=== PATIENT | female | born 1950 | race Caucasian/White ===

== ENCOUNTER 2021-01-18 08:43 | Outpatient (CLI) | payer MEDICARE, MEDICAID, SELFPAY ==
--- NOTE | ~2021-01-18 | CT_ITS ---
EXAMINATION: CT brain wo con EXAM DATE: 01/18/2021 09:14 INDICATION: Dizziness and giddiness. TECHNIQUE: Spiral CT of the head was performed without contrast. Axial, coronal and sagittal images were reviewed. The dose-length product (DLP) for this examination was 605.33 mGy-cm. The exposure w as tailored according to patient size, and iterative reconstruction (ASIR) was used as additional dos e reduction technique. Comparison is made to prior examination from 01/07/2014. FINDINGS: There is no acute intraparenchymal hemorrhage. No evidence of intraparenchymal brain mass lesion. No evidence of acute infarction. Please note that initial head CT has limited sensitivity f or small or acute infarctions. There is old left caudate lacunar infarction. There is mild to moder ate periventricular and subcortical hypodensity, nonspecific but probably related to small vessel isc hemic disease. There is mild to moderate prominence of the sulci and ventricles related to cerebral atrophy. There is intracranial carotid arteriosclerosis. There are no extra-axial collections. T here is no mass effect or midline shift. The orbits are unremarkable. Soft tissue is unremarkable. The visualized sinuses and mastoid air cells are well aerated. IMPRESSION: 1. Old left caudate lacunar infarction. 2. Chronic age related findings. Reviewed, dictated and finalized at location [facility].
== END 2021-01-18 08:44 | disposition home or self-care (01) ==
PROVIDERS: PCP Internal Medicine; Visit Provider Internal Medicine
DX: R42 Dizziness and giddiness (principal); Z86.73 Personal history of transient ischemic attack (TIA), and cerebral infarction without residual deficits
CPT/HCPCS: 70450

== ENCOUNTER 2021-07-29 20:17 | Inpatient (IN) | payer MEDICARE, MEDICAID, SELFPAY ==
[2021-07-29] VITALS (7 sets, daily range): BP systolic 119–142; BP diastolic 81–100; PULSE 96–110; RESP 18–20; TEMP 36.6; O2SAT 90–96
--- NOTE | ~2021-07-29 | XR_ITS ---
EXAMINATION: XR chest 2V DATE: 07/29/2021 20:59 INDICATION: Shortness of breath. TECHNIQUE: frontal and lateral views of the chest were obtained. COMPARISON: Chest radiograph dated 01/16/2014 FINDINGS: Opacities in the left lower lung zone with blunting at the posterior sulcus consistent with small lef t pleural effusion and associated atelectasis and/or pneumonia. Right lung remains clear. No pneumoth orax or definitive right pleural effusion. Enlargement of the somewhat globular cardiac silhouette wh ich could be due to cardiomegaly and/or pericardial effusion. Prominent calcified mediastinal and rig ht hilar lymph nodes consistent with old granulomatous disease. Mild thoracic kyphosis with moderate spondylosis. IMPRESSION: 1. Small left pleural effusion with associated left basilar atelectasis and/or pneumonia. 2. Enlarged somewhat globular cardiac silhouette which could be due to cardiomegaly and/or pericardia l effusion. Reviewed, dictated and finalized at [facility]. SERVICE DIRECTOR IMPRESSION: 1. Small left pleural effusion with associated left basilar atelectasis and/or pneumonia. 2. Enlarged somewhat globular cardiac silhouette which could be due to cardiome shantel and/or pericardial effusion.
--- NOTE | ~2021-07-29 | XR_ITS ---
XR chest 1V portable DATE: 07/31/2021 06:39 INDICATION: Congestive heart failure TECHNIQUE: Portable upright AP chest on 07/31/2021 at 0547 hours COMPARISON: 07/29/2021 2 view chest FINDINGS: Globular enlarged cardiac silhouette may be consistent with cardiomegaly and/or pericardial effusion, stable since 07/29/2021. There is prominent aortic calcification. There are calcified hilar and mediastinal nodes consistent with old pulmonary granulomatous disease. There is patchy atelectasis and/or consolidation in the left lower lobe. Left lower lobe pneumonia is suspected. There is mild infiltrate or atelectasis in the right lower lung. There is pulmonary vascular congestion and redistribution and mild prominence of the minor fissure. K erley B-lines are noted suggesting pulmonary interstitial edema. There is minimal if any pleural effu re. No pneumothorax. Diffuse osteopenia. There is mild dextroscoliosis of the thoracic spine. IMPRESSION: Prominent cardiomegaly and/or pericardial effusion Congestive changes Bilateral lower lobe infiltrate and/or consolidation, more prominent on the left Little interval change since 07/29/2021 Reviewed, dictated and finalized at location A. HOLOGIST DEVELOPMENTAL IMPRESSION: Prominent cardiomegaly and/or pericardial effusion Congestive changes Bilateral lower lobe infiltrate and/or consolidation, more prominent on the lef t Little interval change since 07/29/2021
--- NOTE | ~2021-07-29 | CT_ITS ---
EXAMINATION: CT diagnostic chest wo con DATE: 07/31/2021 11:32 INDICATION: sob TECHNIQUE: Computed tomography (CT) of the chest was performed without intravenous contrast. Addition al 3D reconstructions utilizing coronal maximum intensity projection (MIP) were performed. Automated exposure control and iterative reconstruction technique were employed. The dose-length product was 3 91.11 mGy-cm. COMPARISON: 01/16/2014 FINDINGS: Small bilateral pleural effusions with dependent compressive atelectasis in the bilateral lower lobes . There is additional compressive atelectasis medially in the bilateral lower lobes along side a larg e sliding-type hiatal hernia. No pneumonia. Mild scattered peripheral smooth septal line thickening c onsistent with minimal pulmonary edema. Mild emphysema. Cardiomegaly. Small pericardial effusion. Ath erosclerotic coronary artery ossification. Aortic valve calcification. Atherosclerotic calcification is along the normal caliber thoracic aorta. A few small calcified nodules in the right lung along wit h calcified mediastinal and right hilar lymph nodes and a few small hepatic and splenic calcification s, all consistent with old granulomatous disease. Mild thoracic kyphosis with moderate spondylosis. IMPRESSION: 1. Mild congestive heart failure with minimal pulmonary edema and small bilateral pleural effusions. 2. Cardiomegaly with small pericardial effusion. Reviewed, dictated and finalized at location H. RINTENDENT OIL FIELD DRILLING IMPRESSION: 1. Mild congestive heart failure with minimal pulmonary edema and small bilater al pleural effusions. 2. Cardiomegaly with small pericardial effusion.
--- NOTE | ~2021-07-29 | US_ITS ---
US renal BI DATE: 07/30/2021 09:02 INDICATION: Acute renal insufficiency TECHNIQUE: Real-time imaging of the kidneys and urinary bladder COMPARISON: None FINDINGS: Examination limited due to patient condition. The right kidney measures approximately 9.3 cm length, left kidney measures approximately 10.5 cm [facility]. Increased parenchymal echogenicity suggests chronic renal disease. No hydronephrosis is evident. The urinary bladder is unremarkable. IMPRESSION: Chronic renal disease; no obvious renal mass lesion or hydronephrosis Reviewed, dictated and finalized at Location [facility]. Reviewed, dictated and finalized at location A. SERVICER HELPER IMPRESSION: Chronic renal disease; no obvious renal mass lesion or hydronephros is
--- NOTE | 2021-07-29 20:43 | ECG_ITS ---
Measurements Intervals [place] Rate: 109 P: 47 SD: 121 QRS: -19 QRSD: 125 T: 48 QT: 355 QTc: 480 Interpretive Statements SINUS TACHYCARDIA VENTRICULAR TRIGEMINY POSSIBLE LEFT ATRIAL ENLARGEMENT BORDERLINE R WAVE PROGRESSION, ANTERIOR LEADS MINIMAL Q WAVES- HIGH LATERAL LEADS BORDERLINE T WAVE ABNORMALITY- INF/HIGH LAT LEADS BASELINE ARTIFACT- I, II, III, AVR, AVL, AVF, V1-V6 ABNORMAL ECG Electronically Signed On 07-30-2021 8:27:51 ARMATURE BALANCER by Axel Garibay D.O.
[2021-07-29 20:53] LABS: Basophils Percent Auto 0.5 % (0.2-1.2); Eosinophils Absolute Auto 0.1 K/mm3 (0-0.3); Eosinophils Percent Auto 2.3 % (0-4.4); Hematocrit 35.8 % (37.0-47.0); Hemoglobin 11.1 g/dL (12.0-15.0); Immature Granulocyte Absolute 0.01 K/mm3 (0.00-0.031); Immature Granulocyte Percent A 0.2 % (0-0.5); Lymphocytes Absolute Auto 0.92 K/mm3 (0.9-3.2); Lymphocytes Percent Auto 16.1 % (18.3-44.2); Mean Corpuscular Volume 106.5 fl (80-100); Monocytes Absolute Auto 0.6 K/mm3 (0.1-0.6); Monocytes Percent Auto 10.3 % (2.6-8.5); Neutrophils Percent Auto 70.6 % (45.5-73.1); Platelet Count Result 203 k/mm3 (150-375); Red Blood Count 3.36 M/mm3 (4.2-5.4); Red Cell Distribution Width 13.5 % (11.5-14.5); White Blood Count 5.7 K/mm3 (4.5-10.0)
[2021-07-29 21:03] LABS: Alanine Aminotransferase 11 U/L (4-35); Albumin Level 3.9 g/dL (3.5-5.1); Alkaline Phosphatase 90 U/L (38-126); Anion Gap 7 mmol/L (8-16); Aspartate Amino Transferase 33 U/L (14-36); Bilirubin,Total 0.6 mg/dL (0.2-1.3); Blood Urea Nitrogen 27 mg/dL (7-17); Carbon Dioxide 27 mmol/L (22-30); Chloride 101 mmol/L (98-107); Estimated CRCL calculation 40 ml/min; Estimated Glomerular Filt Rate 41; Glucose 113 mg/dL (65-110); Potassium 4.2 mmol/L (3.4-5.0); Sodium 135 mmol/L (137-145)
[2021-07-29 21:08] LABS: INR 1.1; Prothrombin Time 14.4 Seconds (11.1-14.7)
[2021-07-29 21:09] LABS: Partial Thromboplastin Time 34.9 SECONDS (22.3-36.8)
[2021-07-29 21:12] LABS: NT Pro B Type Natriuretic Pept 15500 pg/mL (5-100)
--- NOTE | 2021-07-29 21:50 | ED.SOB ---
HPI - SOB/Dyspnea General Chief Complaint: Shortness of Breath/Dyspnea Stated Complaint: dyspnea Time Seen by Provider: 07/29/21 20:24 History of Present Illness HPI Narrative: Patient is a 70-year-old female who presents from her fdc with shortness of breath. She reports increased swelling to her legs recently. She reports 1 hospitalization years ago for heart failure exacerbation. She reports this feels similar. She reports she is short of breath with laying back. No fevers or chills or sweats. No productive cough. No chest pain or chest pressure. Related Data Home Medications Medication Instructions Recorded Confirmed Adults Multivitamin 1 tab-cap PO DAILY 07/30/21 07/30/21 Aspirin Low Dose 81 mg PO DAILY 07/30/21 07/30/21 Benadryl 25 mg PO HS 07/30/21 07/30/21 Claritin 10 mg PO DAILY 07/30/21 07/30/21 Flonase Allergy Relief 1 puff EACH NARE DAILY 07/30/21 07/30/21 Lasix 20 mg PO BID 07/30/21 07/30/21 Vitamin D2 50,000 unit PO MONTHLY 07/30/21 07/30/21 acetaminophen 650 mg PO ONCE 07/30/21 07/30/21 aripiprazole [Abilify] 15 mg PO DAILY 07/30/21 07/30/21 bisacodyl 10 mg RECTAL TID PRN 07/30/21 07/30/21 carbidopa-levodopa 25 - 100 mg PO TID 07/30/21 07/30/21 docusate sodium 100 mg PO DAILY PRN 07/30/21 07/30/21 levothyroxine 150 mcg PO DAILY 07/30/21 07/30/21 loperamide 2 mg PO DAILY PRN 07/30/21 07/30/21 meclizine 12.5 mg PO TID 07/30/21 07/30/21 meloxicam 7.5 mg PO DAILY 07/30/21 07/30/21 omeprazole 20 mg PO DAILY 07/30/21 07/30/21 polyethylene glycol 17 g PO DAILY PRN 07/30/21 07/30/21 potassium chloride 10 meq PO DAILY 07/30/21 07/30/21 simethicone 80 mg PO QID PRN 07/30/21 07/30/21 Allergies Allergy/AdvReac Type Severity Reaction Status Date / Time clindamycin Allergy Mild Verified 11/04/11 10:12 bee stings Allergy Unknown Swelling Uncoded 01/16/14 15:30 Review of Systems Review of Systems: All systems reviewed & are unremarkable except as noted in HPI and below Constitutional: Constitutional: Denies chills, Reports fatigue, Denies fever(s) and Reports weakness ENT: Denies nasal congestion and Denies sore throat Cardiovascular: Cardiovascular: Denies chest pain and Denies rapid heart rate Respiratory: Respiratory: Denies cough, Reports dyspnea and Denies wheezing Gastrointestinal: Gastrointestinal: Denies abdominal pain, Denies diarrhea, Denies nausea and Denies vomiting Genitourinary: Genitourinary: Denies nocturia, Denies dysuria and Denies flank pain PMFSH Past Medical History Medical History (Updated 07/31/21 @ 19:58 by Duane Joshi MD) Hypothyroidism Parkinson disease Family History Family History (Updated 07/31/21 @ 11:22 by Ricky Garcia MD) Father Alzheimer's dementia Other Unknown family medical history Social History Social History Smoking status: Former smoker Alcohol intake: never Substance use: never Spiritual care concerns: No Exam Narrative: GENERAL: Chronically ill-appearing, well-nourished, and in no acute distress. HEAD: Normocephalic, atraumatic. EYES: PERRLA and EOMI. ENT: Mucous membranes moist. CHEST: Bibasilar crackles. No respiratory distress. HEART: Regular rate and rhythm. Normal peripheral pulses. ABDOMEN: Soft, nontender, nondistended. EXTREMITIES: Normal range of motion. 2+ edema. SKIN: Warm, dry, no rash. NEURO: Alert and oriented x3. PSYCH: Normal mood and affect. Course Course Emergency Course: Patient informed of results. Admit to hospitalist service for diuresis. Patient requiring supplemental oxygen. Vital Signs Vital signs: Vital Signs Temperature 98 F 07/29/21 20: Pulse Rate 110 H 07/29/21 20: Respiratory Rate 20 07/29/21 20: Pulse Oximetry 90 07/29/21 20: Temperature 97.6 F 07/31/21 18:00 Pulse Rate 100 07/31/21 18:00 Respiratory Rate 18 07/31/21 18:00 Blood Pressure 100/74 07/31/21 18:00 Pulse Oximetry 95 07/31/21 18:00 MDM - SOB/Dyspnea Lab Data
--- NOTE | 2021-07-29 21:53 | PM.IMHP ---
H&P: HPI History of Present Illness Date/Time: 07/29/21 21:53 Chief Complaint: Shortness of breath Narrative: This is a 70-year-old female with past medical history significant for degenerative joint disease, hypothyroidism, seasonal allergies. Patient lives at [facility] and was brought in today due to shortness of breath. Patient states that she has been having swelling of her extremities progressively as well as her abdomen increased abdominal girth, however she denies any PND or orthopnea, no lightheadedness, no near syncope, no syncope, no palpitations no chest pain, no fevers, no rigors, no chills, no cough ,no sputum production. Preliminary workup was significant for brain atretic peptide elevated at 15,500, however no prior or lab values for comparison hemoglobin of 11 with MCV of 106, creatinine of 1.3 BUN 27 a chest x-ray showed left-sided pleural effusion versus pneumonia. Patient has been admitted for further evaluation management and treatment. Review of Systems Review of Systems: Bilateral lower extremity swelling shortness of breath Constitutional: Constitutional: Denies chills, Denies fever(s), Denies lethargy, Denies malaise, Denies night sweats, Denies poor appetite and Denies weakness Eyes: Eyes: Denies change in vision ENT: Denies dysphagia, Denies vertigo, Denies dizziness, Denies nasal congestion, Denies nasal discharge, Denies nasal obstruction and Denies odynophagia Cardiovascular: Cardiovascular: Reports leg edema, Denies radiating jaw, neck or arm pain, Denies palpitations, Reports dyspnea, Reports dyspnea on exertion and Denies orthopnea Respiratory: Respiratory: Denies change in phlegm color, Denies cough and Denies excessive phlegm production Gastrointestinal: Gastrointestinal: Denies abdominal pain, Denies dyspepsia, Denies heartburn, Denies diarrhea, Denies nausea and Denies vomiting Genitourinary: Genitourinary: Denies dysuria Musculoskeletal: Musculoskeletal: Denies arthralgias and Denies joint swelling Integumentary/Breasts: Skin/Breast: Denies rash Neurologic: Denies focal weakness and Denies Sensory deficit (Neuro) Psychiatric: Psychiatric: Reports no additional psychiatric complaints and Reports as per HPI Endocrine: Endocrine: Denies polydipsia, Denies polyuria and Denies palpitations Hematologic/Lymphatic: Hematologic/Lymphatic: Reports no additional hematologic/lymphatic complaints and Reports as per HPI Allergic/Immunologic: Allergic/Immunologic: Reports no additional allergic/immunologic complaints and Reports as per HPI [facility] Family History Family History (Updated 07/29/21 @ 23:43 by Paula Wallis RN) Other Unknown family medical history Social History Social History Smoking status: Former smoker Alcohol intake: never Substance use: never Spiritual care concerns: No Meds Home Medications and Allergies Home Medications Medication Instructions Recorded Confirmed Type Adults Multivitamin 1 tab-cap PO DAILY 07/30/21 07/30/21 History Aspirin Low Dose 81 mg PO DAILY 07/30/21 07/30/21 History Benadryl 25 mg PO DAILY 07/30/21 07/30/21 History Claritin 10 mg PO DAILY 07/30/21 07/30/21 History Flonase Allergy Relief 1 puff EACH NARE DAILY 07/30/21 07/30/21 History Lasix 20 mg PO BID 07/30/21 07/30/21 History Vitamin D2 50,000 unit PO MONTHLY 07/30/21 07/30/21 History acetaminophen 650 mg PO ONCE 07/30/21 07/30/21 History aripiprazole [Abilify] 15 mg PO DAILY 07/30/21 07/30/21 History bisacodyl 10 mg RECTAL TID PRN 07/30/21 07/30/21 History carbidopa-levodopa 25 - 100 mg PO TID 07/30/21 07/30/21 History docusate sodium 100 mg PO DAILY PRN 07/30/21 07/30/21 History levothyroxine 150 mcg PO DAILY 07/30/21 07/30/21 History loperamide 2 mg PO DAILY PRN 07/30/21 07/30/21 History meclizine 12.5 mg PO TID 07/30/21 07/30/21 History meloxicam 7.5 mg PO DAILY 07/30/21 07/30/21 History omeprazole 20 mg PO DAILY 07/30/21 07/30/21 History polyethylene glycol 17 g PO DAILY
[2021-07-29] MEDS: ACETAMINOPHEN 500 MG TABLET 1000 MG PO (22:01)
--- NOTE | 2021-07-29 23:38 | ADMGEN ---
This patient, Sasha Sullivan, was admitted to Medical Room 249-01. Patient/family oriented to hospital policies and general routines including ID bracelet, bed and alarms, visiting hours, pain management, procedures, bathroom and other care routines, personal items, smoking policy, room service/diet, and visiting hours. Information on how to activate the Rapid Response Team has been discussed. Patient/Family are encouraged to report perceived risks to care and to ask questions if they do not understand what they are told or what they should do.
[2021-07-30] VITALS (10 sets, daily range): BP systolic 114–141; BP diastolic 73–93; PULSE 73–119; RESP 16–22; TEMP 36.1–36.9; O2SAT 93–98; BMI 31.1
--- NOTE | 2021-07-30 | ECHO_ITS ---
Patient Info Name: Sasha Sullivan Age: 70 years : 1950 Gender: Female Ht: 64 in Wt: 181 lbs BSA: 1.95 m2 HR: 100 bpm BP: 141 / 93 mmHg Heart Rhythm: Sinus Rhythm Exam Date: 07/30/2021 1:58 PM Exam Location: [facility] Patient Status: Outpatient Admit Date: 07/29/2021 Staff Ordering Physician: Saul Disla MD Counselor Marriage And Family: Oleg Cleveland, MARICARMEN, RT Attending Provider: Ramon Ramirez MD Exam Type: CA echo doppler color flow Study Info Indications I50.9 - Heart failure, unspecified Complete two-dimensional, color flow and Doppler transthoracic echocardiogram is performed. Summary 1. Complete two-dimensional, color flow and Doppler transthoracic echocardiogram is performed. 2. Left ventricular chamber dimension is severely enlarged. 3. Left ventricular systolic function is severely reduced, estimated at 20-25%. 4. There is no increased left ventricular wall thickness. 5. The left ventricular diastolic function is abnormal. 6. Left atrial chamber dimension is moderately enlarged. 7. Right atrial chamber dimension is mildly enlarged. 8. There is severe mitral valve regurgitation. 9. There is mild to moderate tricuspid valve regurgitation. 10. Severe pulmonary hypertension, estimated pulmonary arterial systolic pressure is 67 mmHg. 11. There is mild pulmonic regurgitation. Left Ventricle Left ventricular chamber dimension is severely enlarged. Left ventricular systolic function is severely reduced, estimated at 20-25%. There is no increased left ventricular wall thickness. The left ventricular diastolic function is abnormal. Right Ventricle Right ventricular chamber dimension is normal. Right ventricular systolic function is normal. Left Atria Left atrial chamber dimension is moderately enlarged. Right Atria Right atrial chamber dimension is mildly enlarged. Atrial Septum Intact interatrial septum visualized by color flow imaging. Aortic Valve The aortic valve is trileaflet. There is moderate aortic valve sclerosis. There is no aortic valve stenosis. There is mild aortic valve regurgitation. Pulmonic Valve The pulmonic valve is normal. There is no pulmonic valve stenosis. There is mild pulmonic regurgitation. Mitral Valve The mitral valve has calcified annulus. There is no mitral valve stenosis. There is severe mitral valve regurgitation. Tricuspid Valve The tricuspid valve leaflets are normal. There is no significant tricuspid valve stenosis. There is mild to moderate tricuspid valve regurgitation. Severe pulmonary hypertension, estimated pulmonary arterial systolic pressure is 67 mmHg. Pericardium/Pleural The pericardium appears normal. There is small pericardial effusion. Inferior Vena Cava Dilated inferior vena cava with <50% collapse upon inspiration consistent with elevated right atrial pressure, 15 mmHg. Aorta The aortic root size at the sinus of Valsalva is normal. Left Ventricular Outflow Tract Name Value Normal LVOT 2D LVOT Diameter 2.0 cm LVOT Doppler LVOT Peak Gradient 1 mmHg LVOT Mean Gradient
[2021-07-30] MEDS: LEVOTHYROXINE SODIUM 150 MCG TABLET PO (06:20)
[2021-07-30 08:01] LABS: Sodium Urine Random 91 meq/L
[2021-07-30 08:25] LABS: Creatinine Urine 34.5 mg/dL
[2021-07-30] MEDS: ACETAMINOPHEN 325 MG TABLET 650 MG PO ×3 (08:27→20:10)
[2021-07-30] MEDS: MECLIZINE HCL 12.5 MG TABLET PO ×3 (08:28→20:05)
[2021-07-30] MEDS: ASPIRIN 81 MG ENTERIC TABLET PO (08:29)
[2021-07-30] MEDS: MULTIVITAMINS THERAPEUTIC TAB (*BKC) 1 TABLET PO (08:29)
[2021-07-30] MEDS: ARIPiprazole 5 MG TABLET 15 MG PO (08:29)
[2021-07-30] MEDS: POTASSIUM CHLORIDE 10 MEQ TABLET PO (08:29)
[2021-07-30] MEDS: MELOXICAM 7.5 MG TABLET PO (08:29)
[2021-07-30] MEDS: CARBIDOPA/LEVODOPA 25/100 MG TABLET 1 TABLET PO ×3 (08:29→20:05)
[2021-07-30] MEDS: PANTOPRAZOLE 40 MG TABLET PO (08:29)
[2021-07-30] MEDS: LORATADINE 10 MG TABLET PO (08:29)
[2021-07-30] MEDS: FLUTICASONE PROPIONATE 0.05% NA SPR 16 GM BTL (*BKC) 2 SPRAY NASAL (08:30)
[2021-07-30] MEDS: FUROSEMIDE INJ 40 MG/4 ML VIAL IV PUSH ×2 (08:30→20:06)
[2021-07-30 08:49] LABS: Hematocrit 37.2 % (37.0-47.0); Hemoglobin 11.4 g/dL (12.0-15.0); Mean Corpuscular HGB Conc 30.6 g/dl (32-36); Mean Corpuscular Hemoglobin 32.9 pg (26-34); Mean Corpuscular Volume 107.5 fl (80-100); Mean Platelet Volume 10.3 fl (7.4-10.4); Platelet Count Result 200 k/mm3 (150-375); Red Blood Count 3.46 M/mm3 (4.2-5.4); Red Cell Distribution Width 13.5 % (11.5-14.5); White Blood Count 4.8 K/mm3 (4.5-10.0)
[2021-07-30 08:59] LABS: Alanine Aminotransferase 18 U/L (4-35); Alkaline Phosphatase 100 U/L (38-126); Anion Gap 7 mmol/L (8-16); Aspartate Amino Transferase 31 U/L (14-36); Bilirubin,Total 0.8 mg/dL (0.2-1.3); Blood Urea Nitrogen 23 mg/dL (7-17); Calcium 9.2 mg/dL (8.4-10.2); Carbon Dioxide 28 mmol/L (22-30); Chloride 101 mmol/L (98-107); Estimated CRCL calculation 41 ml/min; Estimated Glomerular Filt Rate 45; Glucose 154 mg/dL (65-110); Potassium 4.2 mmol/L (3.4-5.0); Sodium 136 mmol/L (137-145)
[2021-07-30 09:36] LABS: Thyroid Stimulating Hormone Reflex 0.977 uIU/mL (0.465-4.68)
[2021-07-30 10:05] LABS: Folic Acid 11.3 ng/mL (2.76->20)
--- NOTE | 2021-07-30 12:41 | PM.IMPN ---
Progress Note: A&P Assessment and Plan (1) Acute congestive heart failure: Code(s): I50.9 - Heart failure, unspecified Status: Acute Assessment and Plan: Patient with shortness of breath. BNP was [address]. Chest x-ray shows small left pleural effusion with associated atelectasis and a large cardiac silhouette. She has been started on IV Lasix. I/O's are not accurate. She still feels short of breath. Continue daily weights. Continue IV Lasix. Check echocardiogram. (2) Left lower lobe pneumonia: Code(s): J18.9 - Pneumonia, unspecified organism Status: Acute Assessment and Plan: Chest x-ray shows small left pleural effusion with associated atelectasis and/or pneumonia. More likely this is related to her CHF and not pneumonia. No fevers. White count normal. Antibiotics were not started and as such will not start them now. Repeat chest x-ray in the morning. (3) Acute renal failure (ARF): Code(s): N17.9 - Acute kidney failure, unspecified Status: Acute Assessment and Plan: BUN 27 creatinine 1.3 on admission. No clear baseline. She has been started on IV Lasix. Her renal function has improved probably related to ?unloading? of the heart. Renal ultrasound also is consistent with underlying CKD. Continue to monitor daily while on diuretics. Avoid nephrotoxic agents. (4) Anemia: Code(s): D64.9 - Anemia, unspecified Status: Acute Assessment and Plan: Patient with macrocytic anemia. B12 level low end of normal. Will check MMA. Replace B12. (5) Parkinson disease: Code(s): G20 - Parkinson's disease Status: Acute Assessment and Plan: Although not listed in the H&P, patient most likely has Parkinson's disease given clinical findings and the fact she is on Sinemet. Sinemet has been resumed. Start PT and OT. Speech therapy evaluation as well given the concern for pneumonia (6) Hypothyroidism: Code(s): E03.9 - Hypothyroidism, unspecified Status: Acute Assessment and Plan: TSH is normal. Continue Synthroid. (7) DVT prophylaxis: Code(s): Z29.9 - Encounter for prophylactic measures, unspecified Status: Acute Assessment and Plan: Lovenox Subjective Date/time seen: 07/30/21 12:42 Interval history: 70yo female with history of Parkinson here for shortness of breath. Assuming care. Chart reviewed. She slept poorly last night becasue it is a 'newer place'. No n/v. Still feels SOB. No CP. No abd pain. She does have headache and rd 'all over'. She has 'total body arthtritis'. Exam Narrative: AF 97.7 117/80 92 20 96% 2L Gen - NARD lying semi-recumbent in bed Chest - bibasilar inspiratory crackles with diffuse expiratory wheezes, nml RR. CV - RRR S1/S2; Tele showing PVCs, trigeminy and 4 beat NSVT x1 Abd - Soft, NT/ND, Positive BS Ext - pitting and nonpitting pedal edema Neuro - resting tremors noted. masked facies Psych - Nml mood with flat affect Skin - Warm and dry Objective Data Vital Signs Vital Signs: Vital Signs - 24 hr 07/29/21 20:22 07/29/21 20:29 07/29/21 20:31 Temperature 98 F Pulse Rate 110 H 108 H Respiratory Rate 20 Blood Pressure Pulse Oximetry 90 96 07/29/21 20:37 07/29/21 21:15 07/29/21 22:02 Temperature Pulse Rate 96 98 Respiratory Rate 20 18 Blood Pressure 140/100 H 142/96 H 119/81 Pulse Oximetry 96 96 07/29/21 23:53 07/30/21 00:00 07/30/21 04:00 Temperature 97.3 F L 97.2 F L Pulse Rate 98 91 101 H Respiratory Rate 18 18 18 Blood Pressure 118/90 141/93 H Pulse Oximetry 96 97 97 07/30/21 10:00 Temperature 97.7 F Pulse Rate 92 Respiratory Rate 20 Blood Pressure 117/80 Pulse Oximetry 96 Intake/Output Intake/Output: Intake & Output 07/27/21 07/28/21 07/29/21 07/30/21 23:59 23:59 23:59 23:59 Intake Total 880 Output Total 700 Balance 180 Meds/Results Medications: Active Medi
--- NOTE | 2021-07-30 13:56 | PCSTNOTE ---
Please refer to the Bedside Swallow Evaluation in the EMR. Please note, silent aspiration cannot be ruled out at bedside.
[2021-07-30] MEDS: ENOXAPARIN 40 MG/0.4 ML SYRINGE SUB-Q (15:50)
--- NOTE | 2021-07-30 22:18 | PC.NURSE ---
PT HAD RUN OF VTACH ON TELE MONITOR. 7 BEATS NON SUSTAINED. C/O SOB PRIOR TO EPISODE O2 SAT 96 ON 2L AND NON SYMPTOMATIC. TACOS NOTIFIED
[2021-07-30 23:10] LABS: Anion Gap 5 mmol/L (8-16); Blood Urea Nitrogen 25 mg/dL (7-17); Carbon Dioxide 30 mmol/L (22-30); Chloride 98 mmol/L (98-107); Estimated CRCL calculation 41 ml/min; Estimated Glomerular Filt Rate 45; Glucose 105 mg/dL (65-110); Magnesium 1.8 mg/dL (1.6-2.3); Potassium 3.6 mmol/L (3.4-5.0); Sodium 133 mmol/L (137-145)
[2021-07-31] VITALS (13 sets, daily range): BP systolic 98–112; BP diastolic 57–92; PULSE 81–123; RESP 16–22; TEMP 35.9–36.6; O2SAT 93–98
[2021-07-31] MEDS: MECLIZINE HCL 12.5 MG TABLET PO ×3 (05:20→20:00)
[2021-07-31 05:24] LABS: Hematocrit 36.2 % (37.0-47.0); Hemoglobin 11.1 g/dL (12.0-15.0); Immature Platelet Fraction Pct 6.2 % (0.9-11.2); Mean Corpuscular HGB Conc 30.7 g/dl (32-36); Mean Corpuscular Hemoglobin 33.4 pg (26-34); Platelet Count Result 143 k/mm3 (150-375); Red Blood Count 3.32 M/mm3 (4.2-5.4); Red Cell Distribution Width 13.4 % (11.5-14.5); White Blood Count 4.6 K/mm3 (4.5-10.0)
[2021-07-31 05:40] LABS: Albumin Level 3.6 g/dL (3.5-5.1); Anion Gap 4 mmol/L (8-16); Blood Urea Nitrogen 25 mg/dL (7-17); Carbon Dioxide 29 mmol/L (22-30); Chloride 102 mmol/L (98-107); Estimated CRCL calculation 45 ml/min; Estimated Glomerular Filt Rate 49; Glucose 84 mg/dL (65-110); Magnesium 1.9 mg/dL (1.6-2.3); Phosphorus 4.5 mg/dL (2.5-4.5); Potassium 3.9 mmol/L (3.4-5.0); Sodium 135 mmol/L (137-145)
[2021-07-31] MEDS: LEVOTHYROXINE SODIUM 150 MCG TABLET PO (06:27)
[2021-07-31] MEDS: FLUTICASONE PROPIONATE 0.05% NA SPR 16 GM BTL (*BKC) 2 SPRAY NASAL (07:55)
[2021-07-31] MEDS: polyethylene glycoL 3350 17 GM POWD.PACK PO (07:55)
[2021-07-31] MEDS: CARBIDOPA/LEVODOPA 25/100 MG TABLET 1 TABLET PO ×3 (07:55→20:00)
[2021-07-31] MEDS: ARIPiprazole 5 MG TABLET 15 MG PO (07:56)
[2021-07-31] MEDS: PANTOPRAZOLE 40 MG TABLET PO (07:56)
[2021-07-31] MEDS: ASPIRIN 81 MG ENTERIC TABLET PO (07:56)
[2021-07-31] MEDS: LORATADINE 10 MG TABLET PO (07:56)
[2021-07-31] MEDS: MELOXICAM 7.5 MG TABLET PO (07:56)
[2021-07-31] MEDS: CYANOCOBALAMIN 1,000 MCG TABLET 1000 MCG PO (07:56)
[2021-07-31] MEDS: POTASSIUM CHLORIDE 10 MEQ TABLET PO (07:56)
[2021-07-31] MEDS: MULTIVITAMINS THERAPEUTIC TAB (*BKC) 1 TABLET PO (07:56)
[2021-07-31] MEDS: FUROSEMIDE INJ 40 MG/4 ML VIAL IV PUSH ×3 (07:57→21:00)
[2021-07-31] MEDS: ACETAMINOPHEN 325 MG TABLET 650 MG PO ×3 (07:58→19:59)
--- NOTE | 2021-07-31 08:58 | PM.IMPN ---
Progress Note: A&P Assessment and Plan (1) Acute congestive heart failure: Code(s): I50.9 - Heart failure, unspecified Status: Acute Assessment and Plan: Patient with shortness of breath. BNP was 38815. Chest x-ray shows small left pleural effusion with associated atelectasis and a large cardiac silhouette. She has been started on IV Lasix. I/O's are not accurate. She still feels short of breath. Continue daily weights. Continue IV Lasix. Echocardiogram done which showed severe mitral regurgitation with ejection fraction down to 20-25% these is new will consult Cardiology for further evaluation. Continue with diuresis (2) Left lower lobe pneumonia: Code(s): J18.9 - Pneumonia, unspecified organism Status: Acute Assessment and Plan: Chest x-ray shows small left pleural effusion with associated atelectasis and/or pneumonia. More likely this is related to her CHF and not pneumonia. No fevers. White count normal. Antibiotics were not started and as such will not start them now. Repeat chest x-ray this morning with consultation on the left lower lobe. She does have some cough and has underlying Parkinson's disease. Will initiate IV antibiotics for possible pneumonia will get CT chest to further evaluate for this opacity in the left lower lobe which was done this morning formal read pending however no no obvious consolidation noted in my review but has bilateral pleural effusion right more than left (3) Acute renal failure (ARF): Code(s): N17.9 - Acute kidney failure, unspecified Status: Acute Assessment and Plan: BUN 27 creatinine 1.3 on admission. No clear baseline. She has been started on IV Lasix. Her renal function has improved probably related to ?unloading? of the heart. Renal ultrasound also is consistent with underlying CKD. Continue to monitor daily while on diuretics. Avoid nephrotoxic agents. (4) Anemia: Code(s): D64.9 - Anemia, unspecified Status: Acute Assessment and Plan: Patient with macrocytic anemia. B12 level low end of normal. Will check MMA. Replace B12. (5) Parkinson disease: Code(s): G20 - Parkinson's disease Status: Acute Assessment and Plan: Although not listed in the H&P, patient most likely has Parkinson's disease given clinical findings and the fact she is on Sinemet. Sinemet has been resumed. Start PT and OT. Speech therapy evaluation as well given the concern for pneumonia (6) Hypothyroidism: Code(s): E03.9 - Hypothyroidism, unspecified Status: Acute Assessment and Plan: TSH is normal. Continue Synthroid. (7) DVT prophylaxis: Code(s): Z29.9 - Encounter for prophylactic measures, unspecified Status: Acute Assessment and Plan: Lovenox Subjective Date/time seen: 07/31/21 08:58 Interval history: 70yo female with history of Parkinson here for shortness of breath. She reports some cough. Feels better than when she got admitted. Still gets short of breath with exertion. Leg swelling present getting IV Lasix. Has underlying Parkinson's disease. No chest pain Review of Systems Review of Systems: All systems reviewed & are unremarkable except as noted in HPI and below (HPI) Exam Narrative: Gen - NARD lying semi-recumbent in bed Chest - bibasilar inspiratory crackles with no wheezes, nml RR. CV - RRR S1/S2; Tele showing PVCs, trigeminy and 4 beat NSVT x1 Abd - Soft, NT/ND, Positive BS Ext - pitting and nonpitting pedal edema Neuro - resting pill-rolling tremors noted. masked facies Psych - Nml mood with flat affect Skin - Warm and dry Objective Data Vital Signs Vital Signs: Vital Signs - 24 hr 07/30/21 10:00 07/30/21 12:00 07/30/21 14:40 Temperature 97.7 F 98.4 F Pulse Rate 92 116 H 99 Respiratory Rate 20 22 H Blood Pressure 117/80 114/73 Pulse Oximetry 96 93 07/30/21 16:00 07/30/21 18:12 07/30/21 20:00
--- NOTE | 2021-07-31 11:17 | PM.CNCAR ---
Assessment and Plan Assessment and plan (1) Cardiomyopathy: Code(s): I42.9 - Cardiomyopathy, unspecified Status: Acute Assessment and Plan: patient has severe cardiomyopathy with ejection fraction 20 25%. It is uncertain at this point if this is primary or secondary. It may be secondary to her severe mitral regurgitation or primary resulting in LV dilatation and her mitral regurgitation may be secondary. further workup is indicated. Initially I am going to start her on furosemide 40 mg IV q.8 hours. Will initiate low-dose beta-pepper therapy in the form of carvedilol 3.25 mg p.o. b.i.d.. Will try afterload reduction the form of Entresto tomorrow as long as blood pressure will tolerate. She may need some ionotropic support to temporize her situation depending on how she responds to the IV furosemide today. Intake and output and daily weights. Low-salt diet. will repeat chest x-ray. since daily basic metabolic panel I did talk to her about other workup that would typically be needed including a MATT to investigate her mitral regurgitation, left/right heart catheterization and possible eventual mitral valve repair /replacement. At this point she declines and does not wish to pursue any invasive workup. She does verbalized understand that this may result in . I have offered and she wishes to have me discuss this situation with her son Krishan. I have already called and left a message on his voicemail. Awaiting return phone call (2) Acute systolic (congestive) heart failure: Code(s): I50.21 - Acute systolic (congestive) heart failure Status: Acute Assessment and Plan: severe LV dilatation with severe mitral regurgitation. EF 20-25%. Treatment is as above for now and up titrate medications and workup depending how she responds and patient wishes (3) Mitral regurgitation: Code(s): I34.0 - Nonrheumatic mitral (valve) insufficiency Status: Acute Assessment and Plan: severe. Again at this point unknown if this is primary or secondary. Matt is recommended if invasive workup is desired (4) Parkinson disease: Code(s): G20 - Parkinson's disease Status: Acute Assessment and Plan: on carbidopa / levodopa (5) Hypothyroidism: Code(s): E03.9 - Hypothyroidism, unspecified Status: Acute Assessment and Plan: on replacement (6) Syncope: Code(s): R55 - Syncope and collapse Status: Acute Assessment and Plan: uncertain details to this point. Certainly may be related to autonomic dysfunction from longstanding Parkinson's. will place on telemetry monitoring (7) Pulmonary hypertension: Code(s): I27.20 - Pulmonary hypertension, unspecified Status: Acute Assessment and Plan: severe pulmonary hypertension at this point. Likely secondary to underlying left heart disease History of Present Illness History of Present Illness Consult date/time: 07/31/21 11:17 Requesting physician: Saul Disla MD Consult reason: Other ( mitral regurgitation) Reason For Visit: CHF Exacerbation, hypoxia Narrative: date of service 07/31/2021 Reason for consultation: Mitral regurgitation Ordering Physician: Dr. Disla History: Patient is a 70-year-old female who has a significant history of Parkinson's disease for at least 10 years. She is living in a nursing facility because of the Parkinson's disease. She also has history of hypothyroidism, degenerative joint disease. She comes to the hospital after a couple week history of shortness of breath. Patient states that she has been more dyspneic over the past 1-2 weeks. It gradually build up on her. She did have worsening lower extremity swelling as well. She was having troubles lying flat at night and had paroxysmal nocturnal dyspnea. She denies any palpitations. No chest pain. She does state that she had 2 passing out episodes while she was standing or within the p
[2021-07-31] MEDS: ENOXAPARIN 40 MG/0.4 ML SYRINGE SUB-Q (12:35)
[2021-07-31] MEDS: carvediloL 3.125 MG TABLET PO ×2 (13:42→20:00)
[2021-08-01] VITALS (15 sets, daily range): BP systolic 88–114; BP diastolic 52–82; PULSE 51–109; RESP 18–24; TEMP 36.1–37.1; O2SAT 90–100
[2021-08-01 05:34] LABS: Anion Gap 3 mmol/L (8-16); Blood Urea Nitrogen 30 mg/dL (7-17); Calcium 8.8 mg/dL (8.4-10.2); Carbon Dioxide 38 mmol/L (22-30); Chloride 98 mmol/L (98-107); Estimated CRCL calculation 38 ml/min; Estimated Glomerular Filt Rate 41; Glucose 98 mg/dL (65-110); Potassium 3.7 mmol/L (3.4-5.0); Sodium 139 mmol/L (137-145)
[2021-08-01] MEDS: FUROSEMIDE INJ 40 MG/4 ML VIAL IV PUSH ×2 (05:45→20:47)
[2021-08-01] MEDS: LEVOTHYROXINE SODIUM 150 MCG TABLET PO (05:45)
[2021-08-01] MEDS: MECLIZINE HCL 12.5 MG TABLET PO ×3 (05:45→20:47)
[2021-08-01 05:49] LABS: Basophils Percent Auto 0.9 % (0.2-1.2); Eosinophils Absolute Auto 0.3 K/mm3 (0-0.3); Eosinophils Percent Auto 6.8 % (0-4.4); Hematocrit 35.4 % (37.0-47.0); Hemoglobin 11.1 g/dL (12.0-15.0); Immature Granulocyte Absolute 0.01 K/mm3 (0.00-0.031); Immature Granulocyte Percent A 0.2 % (0-0.5); Lymphocytes Absolute Auto 0.94 K/mm3 (0.9-3.2); Lymphocytes Percent Auto 21.3 % (18.3-44.2); Mean Corpuscular HGB Conc 31.4 g/dl (32-36); Mean Corpuscular Volume 105.4 fl (80-100); Mean Platelet Volume 10.3 fl (7.4-10.4); Monocytes Absolute Auto 0.7 K/mm3 (0.1-0.6); Monocytes Percent Auto 15.6 % (2.6-8.5); Neutrophils Absolute Auto 2.4 K/mm3 (1.3-6.7); Neutrophils Percent Auto 55.2 % (45.5-73.1); Platelet Count Result 193 k/mm3 (150-375); Red Blood Count 3.36 M/mm3 (4.2-5.4); Red Cell Distribution Width 13.4 % (11.5-14.5); White Blood Count 4.4 K/mm3 (4.5-10.0)
[2021-08-01] MEDS: FLUTICASONE PROPIONATE 0.05% NA SPR 16 GM BTL (*BKC) 2 SPRAY NASAL (08:10)
[2021-08-01] MEDS: LORATADINE 10 MG TABLET PO (08:11)
[2021-08-01] MEDS: MULTIVITAMINS THERAPEUTIC TAB (*BKC) 1 TABLET PO (08:11)
[2021-08-01] MEDS: CARBIDOPA/LEVODOPA 25/100 MG TABLET 1 TABLET PO ×3 (08:11→20:47)
[2021-08-01] MEDS: ASPIRIN 81 MG ENTERIC TABLET PO (08:11)
[2021-08-01] MEDS: ARIPiprazole 5 MG TABLET 15 MG PO (08:11)
[2021-08-01] MEDS: POTASSIUM CHLORIDE 10 MEQ TABLET PO (08:11)
[2021-08-01] MEDS: MELOXICAM 7.5 MG TABLET PO (08:11)
[2021-08-01] MEDS: PANTOPRAZOLE 40 MG TABLET PO (08:12)
[2021-08-01] MEDS: carvediloL 3.125 MG TABLET PO ×2 (08:12→20:47)
[2021-08-01] MEDS: CYANOCOBALAMIN 1,000 MCG TABLET 1000 MCG PO (08:12)
[2021-08-01] MEDS: ACETAMINOPHEN 325 MG TABLET 650 MG PO ×2 (08:16→11:55)
[2021-08-01] MEDS: DOCUSATE SODIUM 100 MG CAPSULE PO (08:49)
--- NOTE | 2021-08-01 09:03 | PM.IMPN ---
Progress Note: A&P Assessment and Plan (1) Acute congestive heart failure: Code(s): I50.9 - Heart failure, unspecified Status: Acute Assessment and Plan: Patient with shortness of breath. BNP was 47964. Chest x-ray shows small left pleural effusion with associated atelectasis and a large cardiac silhouette. She has been started on IV Lasix. I/O's are not accurate. She still feels short of breath. Continue daily weights. Continue IV Lasix. Echocardiogram done which showed severe mitral regurgitation with ejection fraction down to 20-25% these is new will consult Cardiology for further evaluation. Continue with diuresis . Appreciate Cardiology evaluation for her severe mitral regurgitation and systolic dysfunction. (2) Left lower lobe pneumonia: Code(s): J18.9 - Pneumonia, unspecified organism Status: Acute Assessment and Plan: Chest x-ray shows small left pleural effusion with associated atelectasis and/or pneumonia. More likely this is related to her CHF and not pneumonia. No fevers. White count normal. Antibiotics were not started and as such will not start them now. Repeat chest x-ray this morning with consultation on the left lower lobe. She does have some cough and has underlying Parkinson's disease. Will initiate IV antibiotics for possible pneumonia will get CT chest to further evaluate for this opacity in the left lower lobe which was done this morning formal read pending however no no obvious consolidation noted in my review but has bilateral pleural effusion right more than left With CT chest there is no obvious pneumonia revealed will stop her antibiotics most of her lung findings and chest x-ray were related to her congestive heart failure. Continue on IV diuresis as ordered (3) Acute renal failure (ARF): Code(s): N17.9 - Acute kidney failure, unspecified Status: Acute Assessment and Plan: BUN 27 creatinine 1.3 on admission. No clear baseline. She has been started on IV Lasix. Her renal function has improved probably related to ?unloading? of the heart. Renal ultrasound also is consistent with underlying CKD. Continue to monitor daily while on diuretics. Avoid nephrotoxic agents. (4) Anemia: Code(s): D64.9 - Anemia, unspecified Status: Acute Assessment and Plan: Patient with macrocytic anemia. B12 level low end of normal. Will check MMA. Replace B12. (5) Parkinson disease: Code(s): G20 - Parkinson's disease Status: Acute Assessment and Plan: Although not listed in the H&P, patient most likely has Parkinson's disease given clinical findings and the fact she is on Sinemet. Sinemet has been resumed. Start PT and OT. Speech therapy evaluation as well given the concern for pneumonia (6) Hypothyroidism: Code(s): E03.9 - Hypothyroidism, unspecified Status: Acute Assessment and Plan: TSH is normal. Continue Synthroid. (7) DVT prophylaxis: Code(s): Z29.9 - Encounter for prophylactic measures, unspecified Status: Acute Assessment and Plan: Lovenox Subjective Date/time seen: 08/01/21 09:03 Interval history: 70yo female with history of Parkinson here for shortness of breath. She reports some cough. Feels better than when she got admitted. Still gets short of breath with exertion. Leg swelling present getting IV Lasix. Has underlying Parkinson's disease. No chest pain 08/01/2021 no overnight events. Feels about the same. Shortness of breath on exertion. Leg swelling is getting better. Mild cough but no chest pain. Discuss findings of echocardiogram and a CT chest that was done yesterday. Review of Systems Review of Systems: All systems reviewed & are unremarkable except as noted in HPI and below (HPI) Exam Narrative: Gen - NARD lying semi-recumbent in bed Chest - bibasilar inspiratory crackles with no wheezes, nml RR. CV - RRR S1/S2; Tele s
--- NOTE | 2021-08-01 09:09 | PM.PNCARD ---
Progress Note: A&P Assessment and Plan (1) Cardiomyopathy: Code(s): I42.9 - Cardiomyopathy, unspecified Status: Acute Assessment and Plan: patient has severe cardiomyopathy with ejection fraction 20 25%. It is uncertain at this point if this is primary or secondary. It may be secondary to her severe mitral regurgitation or primary resulting in LV dilatation and her mitral regurgitation may be secondary. further workup is indicated. Will reduce her furosemide to 40 mg IV q.12 hours today. Continue low-dose carvedilol. Will try to start 12/13 mg p.o. b.i.d. of Entresto. I did talk to her about other workup that would typically be needed including a MATT to investigate her mitral regurgitation, left/right heart catheterization and possible eventual mitral valve repair /replacement. At this point she declines and does not wish to pursue any invasive workup. She does verbalized understand that this may result in . I did discuss her situation with her son Krishan yesterday. He is respectful of his mother's wishes. He verbalized understanding also. (2) Acute systolic (congestive) heart failure: Code(s): I50.21 - Acute systolic (congestive) heart failure Status: Acute Assessment and Plan: severe LV dilatation with severe mitral regurgitation. EF 20-25%. Treatment is as above for now and up titrate medications and workup depending how she responds and patient wishes (3) Mitral regurgitation: Code(s): I34.0 - Nonrheumatic mitral (valve) insufficiency Status: Acute Assessment and Plan: severe. Again at this point unknown if this is primary or secondary. Matt is recommended if invasive workup is desired (4) Parkinson disease: Code(s): G20 - Parkinson's disease Status: Acute Assessment and Plan: on carbidopa / levodopa (5) Hypothyroidism: Code(s): E03.9 - Hypothyroidism, unspecified Status: Acute Assessment and Plan: on replacement (6) Syncope: Code(s): R55 - Syncope and collapse Status: Acute Assessment and Plan: uncertain details to this point. Certainly may be related to autonomic dysfunction from longstanding Parkinson's. will place on telemetry monitoring (7) Pulmonary hypertension: Code(s): I27.20 - Pulmonary hypertension, unspecified Status: Acute Assessment and Plan: severe pulmonary hypertension at this point. Likely secondary to underlying left heart disease/MR Subjective Date/time seen: 12/26/21 09:09 Interval history: 70yo female with history of Parkinson here for shortness of breath. She reports some cough. Feels better than when she got admitted. Still gets short of breath with exertion. Leg swelling present getting IV Lasix. Has underlying Parkinson's disease. No chest pain Date of service 08/01/2021 still somewhat short of breath. Swelling is better. No chest pain. Review of Systems Review of Systems: All systems reviewed & are unremarkable except as noted in HPI and below Constitutional: Constitutional: Denies fatigue, Denies headache(s) and Reports weakness Eyes: Eyes: Denies blurry vision ENT: Reports Normal hearing present, Denies headache(s) and Denies neck pain Cardiovascular: Cardiovascular: Denies chest pain, Reports leg edema and Reports dyspnea Respiratory: Respiratory: Reports dyspnea Gastrointestinal: Gastrointestinal: Denies abdominal pain Genitourinary: Genitourinary: Denies flank pain Musculoskeletal: Musculoskeletal: Denies neck pain Integumentary/Breasts: Skin/Breast: Denies dry skin Neurologic: Reports Normal hearing present, Denies headache(s) and Reports weakness Psychiatric: Psychiatric: Denies anxiety Endocrine: Endocrine: Denies fatigue Hematologic/Lymphatic: Hematologic/Lymphatic: Denies easy bleeding Allergic/Immunologic: Allergic/Immunologic: Denies GI upset with certain foods Exam Narrative: patient is aw
[2021-08-01] MEDS: SACUBITRIL/VALSARTAN 12-13 MG TABLET 1 TAB PO (10:09)
[2021-08-01] MEDS: ENOXAPARIN 40 MG/0.4 ML SYRINGE SUB-Q (11:59)
--- NOTE | 2021-08-01 18:01 | ECG_ITS ---
Measurements Intervals [place] Rate: 89 P: 48 MA: 139 QRS: -29 QRSD: 123 T: -78 QT: 409 QTc: 499 Interpretive Statements SINUS RHYTHM FREQUENT VENTRICULAR PREMATURE COMPLEXES POSSIBLE LEFT ATRIAL ENLARGEMENT INCOMPLETE LEFT BUNDLE BRANCH BLOCK DELAYED PRECORDIAL R/S TRANSITION BORDERLINE T WAVE ABNORMALITY- DIFFUSE LEADS ABNORMAL ECG Electronically Signed On 08-01-2021 20:16:48 [employer] TRAP by Axel Garibay D.O.
--- NOTE | 2021-08-01 19:24 | ECG_ITS ---
Measurements Intervals [place] Rate: 95 P: 40 ID: [id number] QRS: -23 QRSD: 122 T: -74 QT: 395 QTc: 498 Interpretive Statements SINUS RHYTHM VENTRICULAR COUPLET AND FREQUENT VENTRICULAR PREMATURE COMPLEXES POSSIBLE LEFT ATRIAL ENLARGEMENT DELAYED PRECORDIAL R/S TRANSITION BORDERLINE T WAVE ABNORMALITY- DIFFUSE LEADS BASELINE ARTIFACT- I, II, AVR ABNORMAL ECG Electronically Signed On 08-02-2021 16:44:03 W[employer] TYING MACHINE KNOTTER by Axel Garibay D.O.
[2021-08-01 19:52] LABS: Lipase 385 U/L (23-300)
[2021-08-01] MEDS: MORPHINE SULFATE (*CRX) 2 MG/ML INJ 1 MG IV PUSH (20:02)
[2021-08-01 20:03] LABS: Troponin I 0.027 ng/mL (0.000-0.034)
[2021-08-01] MEDS: diphenhydrAMINE HCl CAP 25 MG CAPSULE PO (20:47)
[2021-08-01 23:07] LABS: Troponin I 0.027 ng/mL (0.000-0.034)
[2021-08-02] VITALS (13 sets, daily range): BP systolic 100–110; BP diastolic 58–73; PULSE 66–96; RESP 18–20; TEMP 36–36.5; O2SAT 91–95
[2021-08-02] MEDS: ACETAMINOPHEN 325 MG TABLET 650 MG PO ×3 (04:00→21:01)
[2021-08-02] MEDS: MECLIZINE HCL 12.5 MG TABLET PO ×3 (04:01→20:58)
[2021-08-02] MEDS: LEVOTHYROXINE SODIUM 150 MCG TABLET PO (05:32)
--- NOTE | 2021-08-02 05:35 | ECG_ITS ---
Measurements Intervals [place] Rate: 80 P: 38 SC: 145 QRS: -31 QRSD: 120 T: 239 QT: 405 QTc: 467 Interpretive Statements SINUS RHYTHM VENTRICULAR PREMATURE COMPLEX LEFT AXIS DEVIATION MINIMAL Q WAVES- HIGH LATERAL LEADS BORDERLINE T WAVE ABNORMALITY- DIFFUSE LEADS BORDERLINE ECG Electronically Signed On 08-02-2021 16:52:29 PHYSICIAN ASSISTANT by Axel Garibay D.O.
[2021-08-02 05:42] LABS: Basophils Percent Auto 0.6 % (0.2-1.2); Eosinophils Absolute Auto 0.3 K/mm3 (0-0.3); Eosinophils Percent Auto 4.1 % (0-4.4); Hematocrit 35.7 % (37.0-47.0); Hemoglobin 11.2 g/dL (12.0-15.0); Immature Granulocyte Absolute 0.02 K/mm3 (0.00-0.031); Immature Granulocyte Percent A 0.3 % (0-0.5); Lymphocytes Absolute Auto 0.74 K/mm3 (0.9-3.2); Lymphocytes Percent Auto 10.7 % (18.3-44.2); Mean Corpuscular HGB Conc 31.4 g/dl (32-36); Mean Corpuscular Hemoglobin 33.1 pg (26-34); Mean Corpuscular Volume 105.6 fl (80-100); Monocytes Absolute Auto 0.7 K/mm3 (0.1-0.6); Monocytes Percent Auto 9.7 % (2.6-8.5); Neutrophils Absolute Auto 5.1 K/mm3 (1.3-6.7); Neutrophils Percent Auto 74.6 % (45.5-73.1); Platelet Count Result 200 k/mm3 (150-375); Red Blood Count 3.38 M/mm3 (4.2-5.4); Red Cell Distribution Width 13.4 % (11.5-14.5); White Blood Count 6.9 K/mm3 (4.5-10.0)
[2021-08-02 05:51] LABS: Anion Gap 1 mmol/L (8-16); Blood Urea Nitrogen 34 mg/dL (7-17); Calcium 8.7 mg/dL (8.4-10.2); Carbon Dioxide 38 mmol/L (22-30); Chloride 95 mmol/L (98-107); Estimated CRCL calculation 34 ml/min; Estimated Glomerular Filt Rate 37; Glucose 102 mg/dL (65-110); Potassium 3.8 mmol/L (3.4-5.0); Sodium 134 mmol/L (137-145)
--- NOTE | 2021-08-02 07:54 | PM.IMPN ---
Progress Note: A&P Assessment and Plan (1) Acute congestive heart failure: Code(s): I50.9 - Heart failure, unspecified Status: Acute Assessment and Plan: Patient with shortness of breath. BNP [place] [address]. Chest x-ray shows small left pleural effusion with associated atelectasis and a large cardiac silhouette. She has been started on IV Lasix. I/O's are not accurate. She still feels short of breath. Continue daily weights. Continue IV Lasix. Echocardiogram done which showed severe mitral regurgitation with ejection fraction down to 20-25% these is new will consult Cardiology for further evaluation. Continue with diuresis . Appreciate Cardiology evaluation for her severe mitral regurgitation and systolic dysfunction. (2) Left lower lobe pneumonia: Code(s): J18.9 - Pneumonia, unspecified organism Status: Acute Assessment and Plan: Chest x-ray shows small left pleural effusion with associated atelectasis and/or pneumonia. More likely this is related to her CHF and not pneumonia. No fevers. White count normal. Antibiotics were not started and as such will not start them now. Repeat chest x-ray this morning with consultation on the left lower lobe. She does have some cough and has underlying Parkinson's disease. Will initiate IV antibiotics for possible pneumonia will get CT chest to further evaluate for this opacity in the left lower lobe which was done this morning formal read pending however no no obvious consolidation noted in my review but has bilateral pleural effusion right more than left With CT chest there is no obvious pneumonia revealed will stop her antibiotics most of her lung findings and chest x-ray were related to her congestive heart failure. Continue on IV diuresis as ordered (3) Acute renal failure (ARF): Code(s): N17.9 - Acute kidney failure, unspecified Status: Acute Assessment and Plan: BUN 27 creatinine 1.3 on admission. No clear baseline. She has been started on IV Lasix. Her renal function has improved probably related to ?unloading? of the heart. Renal ultrasound also is consistent with underlying CKD. Continue to monitor daily while on diuretics. Avoid nephrotoxic agents. (4) Anemia: Code(s): D64.9 - Anemia, unspecified Status: Acute Assessment and Plan: Patient with macrocytic anemia. B12 level low end of normal. Will check MMA. Replace B12. (5) Parkinson disease: Code(s): G20 - Parkinson's disease Status: Acute Assessment and Plan: Although not listed in the H&P, patient most likely has Parkinson's disease given clinical findings and the fact she is on Sinemet. Sinemet has been resumed. Start PT and OT. Speech therapy evaluation as well given the concern for pneumonia (6) Hypothyroidism: Code(s): E03.9 - Hypothyroidism, unspecified Status: Acute Assessment and Plan: TSH is normal. Continue Synthroid. (7) DVT prophylaxis: Code(s): Z29.9 - Encounter for prophylactic measures, unspecified Status: Acute Assessment and Plan: Lovenox (8) Chest pain: Code(s): R07.9 - Chest pain, unspecified Status: Acute Assessment and Plan: On 08/01/2021 Left lateral reproducible EKG with nonspecific ST-T changes troponin trend has been negative chest pain resolved with analysis given with no further recurrence repeat EKG this morning Subjective Date/time seen: 08/02/21 07:54 Interval history: 70yo female with history of Parkinson here for shortness of breath. She reports some cough. Feels better than when she got admitted. Still gets short of breath with exertion. Leg swelling present getting IV Lasix. Has underlying Parkinson's disease. No chest pain 08/01/2021 no overnight events. Feels about the same. Shortness of breath on exertion. Leg swelling is getting better. Mild cough but no chest pain. Discuss findings of echocard
[2021-08-02] MEDS: POTASSIUM CHLORIDE 10 MEQ TABLET PO (08:55)
[2021-08-02] MEDS: carvediloL 3.125 MG TABLET PO ×2 (08:55→20:58)
[2021-08-02] MEDS: ARIPiprazole 5 MG TABLET 15 MG PO (08:55)
[2021-08-02] MEDS: MELOXICAM 7.5 MG TABLET PO (08:55)
[2021-08-02] MEDS: CYANOCOBALAMIN 1,000 MCG TABLET 1000 MCG PO (08:55)
[2021-08-02] MEDS: PANTOPRAZOLE 40 MG TABLET PO (08:55)
[2021-08-02] MEDS: LORATADINE 10 MG TABLET PO (08:55)
[2021-08-02] MEDS: ASPIRIN 81 MG ENTERIC TABLET PO (08:55)
[2021-08-02] MEDS: FLUTICASONE PROPIONATE 0.05% NA SPR 16 GM BTL (*BKC) 2 SPRAY NASAL (08:55)
[2021-08-02] MEDS: CARBIDOPA/LEVODOPA 25/100 MG TABLET 1 TABLET PO ×3 (08:55→20:58)
[2021-08-02] MEDS: FUROSEMIDE INJ 40 MG/4 ML VIAL IV PUSH (08:56)
[2021-08-02] MEDS: MULTIVITAMINS THERAPEUTIC TAB (*BKC) 1 TABLET PO (08:56)
--- NOTE | 2021-08-02 09:20 | PM.PNCARD ---
Progress Note: A&P Assessment and Plan (1) Cardiomyopathy: Code(s): I42.9 - Cardiomyopathy, unspecified Status: Acute Assessment and Plan: patient has severe cardiomyopathy with ejection fraction 20 25%. It is uncertain at this point if this is primary or secondary. It may be secondary to her severe mitral regurgitation or primary resulting in LV dilatation and her mitral regurgitation may be secondary. further workup is indicated. Change furosemide to 20 mg IV q.8 hours. Continue carvedilol and Entresto at low doses. I did talk to her about other workup that would typically be needed including a MATT to investigate her mitral regurgitation, left/right heart catheterization and possible eventual mitral valve repair /replacement. At this point she declines and does not wish to pursue any invasive workup. She does verbalized understand that this may result in . I did discuss her situation with her son Krishan . He is respectful of his mother's wishes. He verbalized understanding also. (2) Acute systolic (congestive) heart failure: Code(s): I50.21 - Acute systolic (congestive) heart failure Status: Acute Assessment and Plan: severe LV dilatation with severe mitral regurgitation. EF 20-25%. Treatment is as above for now and up titrate medications and workup depending how she responds and patient wishes (3) Mitral regurgitation: Code(s): I34.0 - Nonrheumatic mitral (valve) insufficiency Status: Acute Assessment and Plan: severe. Again at this point unknown if this is primary or secondary. Matt is recommended if invasive workup is desired (4) Parkinson disease: Code(s): G20 - Parkinson's disease Status: Acute Assessment and Plan: on carbidopa / levodopa (5) Hypothyroidism: Code(s): E03.9 - Hypothyroidism, unspecified Status: Acute Assessment and Plan: on replacement (6) Syncope: Code(s): R55 - Syncope and collapse Status: Acute Assessment and Plan: uncertain details to this point. Certainly may be related to autonomic dysfunction from longstanding Parkinson's. will place on telemetry monitoring (7) Pulmonary hypertension: Code(s): I27.20 - Pulmonary hypertension, unspecified Status: Acute Assessment and Plan: severe pulmonary hypertension at this point. Likely secondary to underlying left heart disease/MR (8) Chest pain: Code(s): R07.9 - Chest pain, unspecified Status: Acute Assessment and Plan: Musculoskeletal. Troponins were negative. Subjective Date/time seen: 08/02/21 09:20 Interval history: 70yo female with history of Parkinson here for shortness of breath. She reports some cough. Feels better than when she got admitted. Still gets short of breath with exertion. Leg swelling present getting IV Lasix. Has underlying Parkinson's disease. No chest pain Date of service 08/01/2021 still somewhat short of breath. Swelling is better. No chest pain. Date of service 08/02/2021: she states she feels better today. She has some chest pain last night that was reproducible back pushing on her chest. EKG showed no acute ST segment abnormalities. She states that her shortness breath is better Review of Systems Review of Systems: All systems reviewed & are unremarkable except as noted in HPI and below Constitutional: Constitutional: Denies fatigue, Denies headache(s) and Reports weakness Eyes: Eyes: Denies blurry vision ENT: Reports Normal hearing present, Denies headache(s) and Denies neck pain Cardiovascular: Cardiovascular: Denies chest pain, Reports leg edema and Reports dyspnea Respiratory: Respiratory: Reports dyspnea Gastrointestinal: Gastrointestinal: Denies abdominal pain Genitourinary: Genitourinary: Denies flank pain Musculoskeletal: Musculoskeletal: Denies neck pain Integumentary/Breasts: Skin/Breast: Denies dry skin Neurologic
[2021-08-02] MEDS: SACUBITRIL/VALSARTAN 12-13 MG TABLET 1 TAB PO ×2 (12:01→20:59)
[2021-08-02] MEDS: ENOXAPARIN 40 MG/0.4 ML SYRINGE SUB-Q (12:03)
[2021-08-02] MEDS: FUROSEMIDE INJ 40 MG/4 ML VIAL 20 MG IV PUSH ×2 (16:59→21:02)
[2021-08-02] MEDS: HYDROcodone/acetaminophen (*CRX) 5-325 MG TABLET 1 TAB PO (17:08)
[2021-08-02] MEDS: diphenhydrAMINE HCl CAP 25 MG CAPSULE PO (21:02)
[2021-08-03] VITALS (17 sets, daily range): BP systolic 84–101; BP diastolic 42–94; PULSE 64–103; RESP 16–18; TEMP 36.1–36.9; O2SAT 95–98
[2021-08-03] MEDS: LEVOTHYROXINE SODIUM 150 MCG TABLET PO (05:32)
[2021-08-03] MEDS: MECLIZINE HCL 12.5 MG TABLET PO ×3 (05:32→20:44)
[2021-08-03] MEDS: ACETAMINOPHEN 325 MG TABLET 650 MG PO ×3 (05:33→20:44)
[2021-08-03] MEDS: FUROSEMIDE INJ 40 MG/4 ML VIAL 20 MG IV PUSH (05:34)
[2021-08-03 05:49] LABS: Basophils Absolute Auto 0.1 K/mm3 (0.0-0.1); Basophils Percent Auto 1.1 % (0.2-1.2); Eosinophils Absolute Auto 0.3 K/mm3 (0-0.3); Eosinophils Percent Auto 6.1 % (0-4.4); Hematocrit 40.5 % (37.0-47.0); Hemoglobin 12.3 g/dL (12.0-15.0); Immature Granulocyte Absolute 0.01 K/mm3 (0.00-0.031); Immature Granulocyte Percent A 0.2 % (0-0.5); Lymphocytes Absolute Auto 0.92 K/mm3 (0.9-3.2); Lymphocytes Percent Auto 16.5 % (18.3-44.2); Mean Corpuscular HGB Conc 30.4 g/dl (32-36); Mean Corpuscular Hemoglobin 32.5 pg (26-34); Mean Corpuscular Volume 106.9 fl (80-100); Mean Platelet Volume 10.1 fl (7.4-10.4); Monocytes Absolute Auto 0.7 K/mm3 (0.1-0.6); Monocytes Percent Auto 13.3 % (2.6-8.5); Neutrophils Absolute Auto 3.5 K/mm3 (1.3-6.7); Neutrophils Percent Auto 62.8 % (45.5-73.1); Platelet Count Result 228 k/mm3 (150-375); Red Blood Count 3.79 M/mm3 (4.2-5.4); Red Cell Distribution Width 13.3 % (11.5-14.5); White Blood Count 5.6 K/mm3 (4.5-10.0)
[2021-08-03 06:01] LABS: Alanine Aminotransferase 7 U/L (4-35); Albumin Level 3.8 g/dL (3.5-5.1); Alkaline Phosphatase 71 U/L (38-126); Anion Gap 8 mmol/L (8-16); Aspartate Amino Transferase 41 U/L (14-36); Bilirubin,Total 0.9 mg/dL (0.2-1.3); Blood Urea Nitrogen 37 mg/dL (7-17); Carbon Dioxide 38 mmol/L (22-30); Chloride 93 mmol/L (98-107); Estimated CRCL calculation 37 ml/min; Estimated Glomerular Filt Rate 41; Glucose 101 mg/dL (65-110); Magnesium 2.2 mg/dL (1.6-2.3); Potassium 4.4 mmol/L (3.4-5.0); Sodium 139 mmol/L (137-145)
[2021-08-03] MEDS: FLUTICASONE PROPIONATE 0.05% NA SPR 16 GM BTL (*BKC) 2 SPRAY NASAL (08:33)
[2021-08-03] MEDS: CYANOCOBALAMIN 1,000 MCG TABLET 1000 MCG PO (08:34)
[2021-08-03] MEDS: MELOXICAM 7.5 MG TABLET PO (08:34)
[2021-08-03] MEDS: ARIPiprazole 5 MG TABLET 15 MG PO (08:34)
[2021-08-03] MEDS: MULTIVITAMINS THERAPEUTIC TAB (*BKC) 1 TABLET PO (08:34)
[2021-08-03] MEDS: ASPIRIN 81 MG ENTERIC TABLET PO (08:34)
[2021-08-03] MEDS: PANTOPRAZOLE 40 MG TABLET PO (08:34)
[2021-08-03] MEDS: SACUBITRIL/VALSARTAN 12-13 MG TABLET 1 TAB PO ×2 (08:34→20:45)
[2021-08-03] MEDS: carvediloL 3.125 MG TABLET PO ×2 (08:34→20:45)
[2021-08-03] MEDS: LORATADINE 10 MG TABLET PO (08:34)
[2021-08-03] MEDS: POTASSIUM CHLORIDE 10 MEQ TABLET PO (08:34)
[2021-08-03] MEDS: CARBIDOPA/LEVODOPA 25/100 MG TABLET 1 TABLET PO ×3 (08:34→20:45)
--- NOTE | 2021-08-03 09:15 | PM.IMPN ---
Progress Note: A&P Assessment and Plan (1) Acute congestive heart failure: Code(s): I50.9 - Heart failure, unspecified Status: Acute Assessment and Plan: Patient with shortness of breath. BNP was [address]. Chest x-ray shows small left pleural effusion with associated atelectasis and a large cardiac silhouette. She has been started on IV Lasix. I/O's are not accurate. She still feels short of breath. Continue daily weights. Continue IV Lasix. Echocardiogram done which showed severe mitral regurgitation with ejection fraction down to 20-25% these is new will consult Cardiology for further evaluation. Continue with diuresis . Appreciate Cardiology evaluation for her severe mitral regurgitation and systolic dysfunction. on Entresto and carvedilol now (2) Left lower lobe pneumonia: Code(s): J18.9 - Pneumonia, unspecified organism Status: Acute Assessment and Plan: Chest x-ray shows small left pleural effusion with associated atelectasis and/or pneumonia. More likely this is related to her CHF and not pneumonia. No fevers. White count normal. Antibiotics were not started and as such will not start them now. Repeat chest x-ray this morning with consultation on the left lower lobe. She does have some cough and has underlying Parkinson's disease. Will initiate IV antibiotics for possible pneumonia will get CT chest to further evaluate for this opacity in the left lower lobe which was done this morning formal read pending however no no obvious consolidation noted in my review but has bilateral pleural effusion right more than left With CT chest there is no obvious pneumonia revealed will stop her antibiotics most of her lung findings and chest x-ray were related to her congestive heart failure. Continue on IV diuresis as ordered (3) Acute renal failure (ARF): Code(s): N17.9 - Acute kidney failure, unspecified Status: Acute Assessment and Plan: BUN 27 creatinine 1.3 on admission. No clear baseline. She has been started on IV Lasix. Her renal function has improved probably related to ?unloading? of the heart. Renal ultrasound also is consistent with underlying CKD. Continue to monitor daily while on diuretics. Avoid nephrotoxic agents. (4) Anemia: Code(s): D64.9 - Anemia, unspecified Status: Acute Assessment and Plan: Patient with macrocytic anemia. B12 level low end of normal. Will check MMA. Replace B12. (5) Parkinson disease: Code(s): G20 - Parkinson's disease Status: Acute Assessment and Plan: Although not listed in the H&P, patient most likely has Parkinson's disease given clinical findings and the fact she is on Sinemet. Sinemet has been resumed. Start PT and OT. Speech therapy evaluation as well given the concern for pneumonia (6) Hypothyroidism: Code(s): E03.9 - Hypothyroidism, unspecified Status: Acute Assessment and Plan: TSH is normal. Continue Synthroid. (7) DVT prophylaxis: Code(s): Z29.9 - Encounter for prophylactic measures, unspecified Status: Acute Assessment and Plan: Lovenox (8) Chest pain: Code(s): R07.9 - Chest pain, unspecified Status: Acute Assessment and Plan: On 08/01/2021 Left lateral reproducible EKG with nonspecific ST-T changes troponin trend has been negative chest pain resolved with analysis given with no further recurrence repeat EKG with no dynamic EKG changes No further chest pain reported Subjective Date/time seen: 08/03/21 09:15 Interval history: 70yo female with history of Parkinson here for shortness of breath. She reports some cough. Feels better than when she got admitted. Still gets short of breath with exertion. Leg swelling present getting IV Lasix. Has underlying Parkinson's disease. No chest pain 08/01/2021 no overnight events. Feels about the same. Shortness of breath on exertion. Leg swelling
[2021-08-03] MEDS: ENOXAPARIN 40 MG/0.4 ML SYRINGE SUB-Q (12:11)
--- NOTE | 2021-08-03 12:46 | PM.PNCARD ---
Progress Note: A&P Assessment and Plan (1) Cardiomyopathy: Code(s): I42.9 - Cardiomyopathy, unspecified Status: Acute Assessment and Plan: patient has severe cardiomyopathy with ejection fraction 20 25%. It is uncertain at this point if this is primary or secondary. It may be secondary to her severe mitral regurgitation or primary resulting in LV dilatation and her mitral regurgitation may be secondary. further workup is indicated. Will DC IV furosemide and transition her to 40 mg p.o. daily. Continue carvedilol and Entresto at low doses. Possible DC tomorrow I did talk to her about other workup that would typically be needed including a MATT to investigate her mitral regurgitation, left/right heart catheterization and possible eventual mitral valve repair /replacement. At this point she declines and does not wish to pursue any invasive workup. She does verbalized understand that this may result in . I did discuss her situation with her son Krishan . He is respectful of his mother's wishes. He verbalized understanding also. (2) Acute systolic (congestive) heart failure: Code(s): I50.21 - Acute systolic (congestive) heart failure Status: Acute Assessment and Plan: severe LV dilatation with severe mitral regurgitation. EF 20-25%. Treatment is as above for now and up titrate medications and workup depending how she responds and patient wishes (3) Mitral regurgitation: Code(s): I34.0 - Nonrheumatic mitral (valve) insufficiency Status: Acute Assessment and Plan: severe. Again at this point unknown if this is primary or secondary. Matt is recommended if invasive workup is desired (4) Parkinson disease: Code(s): G20 - Parkinson's disease Status: Acute Assessment and Plan: on carbidopa / levodopa (5) Hypothyroidism: Code(s): E03.9 - Hypothyroidism, unspecified Status: Acute Assessment and Plan: on replacement (6) Syncope: Code(s): R55 - Syncope and collapse Status: Acute Assessment and Plan: uncertain details to this point. Certainly may be related to autonomic dysfunction from longstanding Parkinson's. will place on telemetry monitoring (7) Pulmonary hypertension: Code(s): I27.20 - Pulmonary hypertension, unspecified Status: Acute Assessment and Plan: severe pulmonary hypertension at this point. Likely secondary to underlying left heart disease/MR (8) Chest pain: Code(s): R07.9 - Chest pain, unspecified Status: Acute Assessment and Plan: Musculoskeletal. Troponins were negative. Subjective Date/time seen: 08/03/21 12:46 Interval history: 70yo female with history of Parkinson here for shortness of breath. She reports some cough. Feels better than when she got admitted. Still gets short of breath with exertion. Leg swelling present getting IV Lasix. Has underlying Parkinson's disease. No chest pain Date of service 08/01/2021 still somewhat short of breath. Swelling is better. No chest pain. Date of service 08/02/2021: she states she feels better today. She has some chest pain last night that was reproducible back pushing on her chest. EKG showed no acute ST segment abnormalities. She states that her shortness breath is better Date of service 08/03/2021: She continues to feel okay. No chest pain or shortness of breath. Feels much Better than admission Review of Systems Review of Systems: All systems reviewed & are unremarkable except as noted in HPI and below Constitutional: Constitutional: Denies fatigue, Denies headache(s) and Reports weakness Eyes: Eyes: Denies blurry vision ENT: Reports Normal hearing present, Denies headache(s) and Denies neck pain Cardiovascular: Cardiovascular: Denies chest pain, Reports leg edema and Reports dyspnea Respiratory: Respiratory: Reports dyspnea Gastrointestinal: Gastrointestinal: Denies abdominal
[2021-08-03] MEDS: diphenhydrAMINE HCl CAP 25 MG CAPSULE PO (20:46)
[2021-08-03 21:34] LABS: Methylmalonic Acid 1070 nmol/L (87-318)
[2021-08-04] VITALS (14 sets, daily range): BP systolic 87–112; BP diastolic 47–80; PULSE 59–96; RESP 12–20; TEMP 35.9–36.9; O2SAT 95–96
[2021-08-04] MEDS: MECLIZINE HCL 12.5 MG TABLET PO ×3 (05:22→20:53)
[2021-08-04] MEDS: LEVOTHYROXINE SODIUM 150 MCG TABLET PO (05:23)
[2021-08-04 05:59] LABS: Basophils Absolute Auto 0.1 K/mm3 (0.0-0.1); Eosinophils Absolute Auto 0.3 K/mm3 (0-0.3); Eosinophils Percent Auto 6.6 % (0-4.4); Hematocrit 38.8 % (37.0-47.0); Immature Granulocyte Absolute 0.01 K/mm3 (0.00-0.031); Immature Granulocyte Percent A 0.2 % (0-0.5); Lymphocytes Absolute Auto 0.88 K/mm3 (0.9-3.2); Lymphocytes Percent Auto 17.7 % (18.3-44.2); Mean Corpuscular HGB Conc 30.9 g/dl (32-36); Mean Corpuscular Volume 106.6 fl (80-100); Monocytes Absolute Auto 0.6 K/mm3 (0.1-0.6); Monocytes Percent Auto 12.7 % (2.6-8.5); Neutrophils Absolute Auto 3.1 K/mm3 (1.3-6.7); Neutrophils Percent Auto 61.8 % (45.5-73.1); Platelet Count Result 211 k/mm3 (150-375); Red Blood Count 3.64 M/mm3 (4.2-5.4); Red Cell Distribution Width 13.3 % (11.5-14.5)
[2021-08-04 06:07] LABS: Alanine Aminotransferase 7 U/L (4-35); Albumin Level 3.7 g/dL (3.5-5.1); Alkaline Phosphatase 70 U/L (38-126); Anion Gap 7 mmol/L (8-16); Aspartate Amino Transferase 36 U/L (14-36); Bilirubin,Total 0.7 mg/dL (0.2-1.3); Blood Urea Nitrogen 41 mg/dL (7-17); Calcium 9.3 mg/dL (8.4-10.2); Carbon Dioxide 35 mmol/L (22-30); Chloride 96 mmol/L (98-107); Estimated CRCL calculation 37 ml/min; Estimated Glomerular Filt Rate 41; Glucose 99 mg/dL (65-110); Magnesium 2.4 mg/dL (1.6-2.3); Potassium 4.4 mmol/L (3.4-5.0); Sodium 138 mmol/L (137-145)
[2021-08-04] MEDS: PANTOPRAZOLE 40 MG TABLET PO (07:59)
[2021-08-04] MEDS: ARIPiprazole 5 MG TABLET 15 MG PO (07:59)
[2021-08-04] MEDS: CYANOCOBALAMIN 1,000 MCG TABLET 1000 MCG PO (07:59)
[2021-08-04] MEDS: CARBIDOPA/LEVODOPA 25/100 MG TABLET 1 TABLET PO ×3 (07:59→20:53)
[2021-08-04] MEDS: POTASSIUM CHLORIDE 10 MEQ TABLET PO (07:59)
[2021-08-04] MEDS: FLUTICASONE PROPIONATE 0.05% NA SPR 16 GM BTL (*BKC) 2 SPRAY NASAL (08:00)
[2021-08-04] MEDS: MULTIVITAMINS THERAPEUTIC TAB (*BKC) 1 TABLET PO (08:00)
[2021-08-04] MEDS: LORATADINE 10 MG TABLET PO (08:00)
[2021-08-04] MEDS: SACUBITRIL/VALSARTAN 12-13 MG TABLET 1 TAB PO ×2 (08:00→20:53)
[2021-08-04] MEDS: carvediloL 3.125 MG TABLET PO ×2 (08:00→20:53)
[2021-08-04] MEDS: FUROSEMIDE 40 MG TABLET PO (08:00)
[2021-08-04] MEDS: ASPIRIN 81 MG ENTERIC TABLET PO (08:00)
[2021-08-04] MEDS: MELOXICAM 7.5 MG TABLET PO (08:01)
--- NOTE | 2021-08-04 11:31 | PM.PNCARD ---
Progress Note: A&P Assessment and Plan (1) Cardiomyopathy: Code(s): I42.9 - Cardiomyopathy, unspecified Status: Acute Assessment and Plan: patient has severe cardiomyopathy with ejection fraction 20 25%. It is uncertain at this point if this is primary or secondary. It may be secondary to her severe mitral regurgitation or primary resulting in LV dilatation and her mitral regurgitation may be secondary. further workup is indicated. continue furosemide.. Continue carvedilol and Entresto at low doses. Possible DC Today or tomorrow I did talk to her about other workup that would typically be needed including a MATT to investigate her mitral regurgitation, left/right heart catheterization and possible eventual mitral valve repair /replacement. At this point she declines and does not wish to pursue any invasive workup. She does verbalized understand that this may result in . I did discuss her situation with her son Krishan . He is respectful of his mother's wishes. He verbalized understanding also. (2) Acute systolic (congestive) heart failure: Code(s): I50.21 - Acute systolic (congestive) heart failure Status: Acute Assessment and Plan: severe LV dilatation with severe mitral regurgitation. EF 20-25%. Treatment is as above for now and up titrate medications and workup depending how she responds and patient wishes (3) Mitral regurgitation: Code(s): I34.0 - Nonrheumatic mitral (valve) insufficiency Status: Acute Assessment and Plan: severe. Again at this point unknown if this is primary or secondary. Matt is recommended if invasive workup is desired (4) Parkinson disease: Code(s): G20 - Parkinson's disease Status: Acute Assessment and Plan: on carbidopa / levodopa (5) Hypothyroidism: Code(s): E03.9 - Hypothyroidism, unspecified Status: Acute Assessment and Plan: on replacement (6) Syncope: Code(s): R55 - Syncope and collapse Status: Acute Assessment and Plan: Uncertain details to this point. Certainly may be related to autonomic dysfunction from longstanding Parkinson's. will place on telemetry monitoring (7) Pulmonary hypertension: Code(s): I27.20 - Pulmonary hypertension, unspecified Status: Acute Assessment and Plan: severe pulmonary hypertension at this point. Likely secondary to underlying left heart disease/MR (8) Chest pain: Code(s): R07.9 - Chest pain, unspecified Status: Acute Assessment and Plan: Musculoskeletal. Subjective Date/time seen: 08/04/21 11:31 Interval history: 70yo female with history of Parkinson here for shortness of breath. She reports some cough. Feels better than when she got admitted. Still gets short of breath with exertion. Leg swelling present getting IV Lasix. Has underlying Parkinson's disease. No chest pain Date of service 08/01/2021 still somewhat short of breath. Swelling is better. No chest pain. Date of service 08/02/2021: she states she feels better today. She has some chest pain last night that was reproducible back pushing on her chest. EKG showed no acute ST segment abnormalities. She states that her shortness breath is better Date of service 08/03/2021: She continues to feel okay. No chest pain or shortness of breath. Feels much Better than admission Date of service 08/04/2021: She states that she is not feeling as well today. Complains of some dizziness as if the room is spinning. Also complaining of chest pain Review of Systems Review of Systems: All systems reviewed & are unremarkable except as noted in HPI and below Constitutional: Constitutional: Denies fatigue, Denies headache(s) and Reports weakness Eyes: Eyes: Denies blurry vision ENT: Reports Normal hearing present, Denies headache(s) and Denies neck pain Cardiovascular: Cardiovascular: Denies chest pain, Reports leg edema and
[2021-08-04] MEDS: ACETAMINOPHEN 325 MG TABLET 650 MG PO ×2 (12:02→20:56)
[2021-08-04] MEDS: ENOXAPARIN 40 MG/0.4 ML SYRINGE SUB-Q (12:04)
--- NOTE | 2021-08-04 16:12 | PM.IMPN ---
Progress Note: A&P Assessment and Plan (1) Acute congestive heart failure: Code(s): I50.9 - Heart failure, unspecified Status: Acute Assessment and Plan: Patient with shortness of breath. BNP was 33144. Chest x-ray shows small left pleural effusion with associated atelectasis and a large cardiac silhouette. She has been started on IV Lasix. I/O's are not accurate. She still feels short of breath. Continue daily weights. Continue IV Lasix. Echocardiogram done which showed severe mitral regurgitation with ejection fraction down to 20-25% these is new will consult Cardiology for further evaluation. Continue with diuresis . Appreciate Cardiology evaluation for her severe mitral regurgitation and systolic dysfunction. on Entresto and carvedilol now. Blood pressure is borderline with Entresto and current diuresis. Continue to monitor Overall fairly advanced congestive heart failure with severe systolic dysfunction along with severe mitral regurgitation. Patient opts for no further invasive testing/intervention for this. (2) Left lower lobe pneumonia: Code(s): J18.9 - Pneumonia, unspecified organism Status: Acute Assessment and Plan: Chest x-ray shows small left pleural effusion with associated atelectasis and/or pneumonia. More likely this is related to her CHF and not pneumonia. No fevers. White count normal. Antibiotics were not started and as such will not start them now. Repeat chest x-ray this morning with consultation on the left lower lobe. She does have some cough and has underlying Parkinson's disease. Will initiate IV antibiotics for possible pneumonia will get CT chest to further evaluate for this opacity in the left lower lobe which was done this morning formal read pending however no no obvious consolidation noted in my review but has bilateral pleural effusion right more than left With CT chest there is no obvious pneumonia revealed will stop her antibiotics most of her lung findings and chest x-ray were related to her congestive heart failure. Continue on IV diuresis as ordered. Diuresis changed from IV to p.o. (3) Acute renal failure (ARF): Code(s): N17.9 - Acute kidney failure, unspecified Status: Acute Assessment and Plan: BUN 27 creatinine 1.3 on admission. No clear baseline. She has been started on IV Lasix. Her renal function has improved probably related to ?unloading? of the heart. Renal ultrasound also is consistent with underlying CKD. Continue to monitor daily while on diuretics. Avoid nephrotoxic agents. (4) Anemia: Code(s): D64.9 - Anemia, unspecified Status: Acute Assessment and Plan: Patient with macrocytic anemia. B12 level low end of normal. Will check MMA. Replace B12. (5) Parkinson disease: Code(s): G20 - Parkinson's disease Status: Acute Assessment and Plan: Although not listed in the H&P, patient most likely has Parkinson's disease given clinical findings and the fact she is on Sinemet. Sinemet has been resumed. Start PT and OT. Speech therapy evaluation as well given the concern for pneumonia (6) Hypothyroidism: Code(s): E03.9 - Hypothyroidism, unspecified Status: Acute Assessment and Plan: TSH is normal. Continue Synthroid. (7) DVT prophylaxis: Code(s): Z29.9 - Encounter for prophylactic measures, unspecified Status: Acute Assessment and Plan: Lovenox (8) Chest pain: Code(s): R07.9 - Chest pain, unspecified Status: Acute Assessment and Plan: On 08/01/2021 Left lateral reproducible EKG with nonspecific ST-T changes troponin trend has been negative chest pain resolved with analysis given with no further recurrence repeat EKG with no dynamic EKG changes No further chest pain reported Subjective Date/time seen: 08/04/21 16:12 Interval history: 70yo female with history of Parkinson here for shortness of breath
[2021-08-04] MEDS: diphenhydrAMINE HCl CAP 25 MG CAPSULE PO (20:53)
[2021-08-05] VITALS (12 sets, daily range): BP systolic 87–103; BP diastolic 47–60; PULSE 64–88; RESP 16–18; TEMP 35.9–36.7; O2SAT 94–98
[2021-08-05] MEDS: MECLIZINE HCL 12.5 MG TABLET PO ×3 (06:10→20:23)
[2021-08-05] MEDS: LEVOTHYROXINE SODIUM 150 MCG TABLET PO (06:10)
[2021-08-05] MEDS: POTASSIUM CHLORIDE 10 MEQ TABLET PO (08:40)
[2021-08-05] MEDS: MULTIVITAMINS THERAPEUTIC TAB (*BKC) 1 TABLET PO (08:40)
[2021-08-05] MEDS: FLUTICASONE PROPIONATE 0.05% NA SPR 16 GM BTL (*BKC) 2 SPRAY NASAL (08:40)
[2021-08-05] MEDS: ARIPiprazole 5 MG TABLET 15 MG PO (08:40)
[2021-08-05] MEDS: LORATADINE 10 MG TABLET PO (08:40)
[2021-08-05] MEDS: carvediloL 3.125 MG TABLET PO (08:40)
[2021-08-05] MEDS: FUROSEMIDE 40 MG TABLET PO (08:40)
[2021-08-05] MEDS: CARBIDOPA/LEVODOPA 25/100 MG TABLET 1 TABLET PO ×3 (08:40→20:51)
[2021-08-05] MEDS: ASPIRIN 81 MG ENTERIC TABLET PO (08:40)
[2021-08-05] MEDS: CYANOCOBALAMIN 1,000 MCG TABLET 1000 MCG PO (08:41)
[2021-08-05] MEDS: SACUBITRIL/VALSARTAN 12-13 MG TABLET 1 TAB PO ×2 (08:41→20:23)
[2021-08-05] MEDS: PANTOPRAZOLE 40 MG TABLET PO (08:41)
[2021-08-05] MEDS: MELOXICAM 7.5 MG TABLET PO (08:41)
[2021-08-05] MEDS: ACETAMINOPHEN 325 MG TABLET 650 MG PO ×3 (08:46→20:22)
[2021-08-05 09:32] LABS: Basophils Absolute Auto 0.1 K/mm3 (0.0-0.1); Basophils Percent Auto 0.8 % (0.2-1.2); Eosinophils Absolute Auto 0.3 K/mm3 (0-0.3); Eosinophils Percent Auto 5.3 % (0-4.4); Hematocrit 42.8 % (37.0-47.0); Hemoglobin 12.9 g/dL (12.0-15.0); Immature Granulocyte Absolute 0.02 K/mm3 (0.00-0.031); Immature Granulocyte Percent A 0.3 % (0-0.5); Lymphocytes Absolute Auto 0.96 K/mm3 (0.9-3.2); Lymphocytes Percent Auto 15.1 % (18.3-44.2); Mean Corpuscular HGB Conc 30.1 g/dl (32-36); Mean Corpuscular Hemoglobin 32.7 pg (26-34); Mean Corpuscular Volume 108.4 fl (80-100); Mean Platelet Volume 10.1 fl (7.4-10.4); Monocytes Absolute Auto 0.5 K/mm3 (0.1-0.6); Monocytes Percent Auto 8.2 % (2.6-8.5); Neutrophils Absolute Auto 4.5 K/mm3 (1.3-6.7); Neutrophils Percent Auto 70.3 % (45.5-73.1); Platelet Count Result 231 k/mm3 (150-375); Red Blood Count 3.95 M/mm3 (4.2-5.4); Red Cell Distribution Width 13.4 % (11.5-14.5); White Blood Count 6.4 K/mm3 (4.5-10.0)
[2021-08-05 09:49] LABS: Anion Gap 8 mmol/L (8-16); Blood Urea Nitrogen 42 mg/dL (7-17); Calcium 9.3 mg/dL (8.4-10.2); Carbon Dioxide 33 mmol/L (22-30); Chloride 98 mmol/L (98-107); Estimated CRCL calculation 34 ml/min; Estimated Glomerular Filt Rate 37; Glucose 156 mg/dL (65-110); Magnesium 2.3 mg/dL (1.6-2.3); Potassium 4.5 mmol/L (3.4-5.0); Sodium 139 mmol/L (137-145)
--- NOTE | 2021-08-05 11:06 | PM.PNCARD ---
Progress Note: A&P Assessment and Plan (1) Cardiomyopathy: Code(s): I42.9 - Cardiomyopathy, unspecified Status: Acute Assessment and Plan: patient has severe cardiomyopathy with ejection fraction 20 25%. It is uncertain at this point if this is primary or secondary. It may be secondary to her severe mitral regurgitation or primary resulting in LV dilatation and her mitral regurgitation may be secondary. further workup is indicated. continue furosemide.. Continue carvedilol and Entresto at low doses. Dr. owens spoke to her about other workup that would typically be needed including a MATT to investigate her mitral regurgitation, left/right heart catheterization and possible eventual mitral valve repair /replacement. At this point she declines and does not wish to pursue any invasive workup. She does verbalized understand that this may result in . (2) Acute systolic (congestive) heart failure: Code(s): I50.21 - Acute systolic (congestive) heart failure Status: Acute Assessment and Plan: severe LV dilatation with severe mitral regurgitation. EF 20-25%. Treatment is as above for now and up titrate medications and workup depending how she responds and patient wishes (3) Mitral regurgitation: Code(s): I34.0 - Nonrheumatic mitral (valve) insufficiency Status: Acute Assessment and Plan: severe. Again at this point unknown if this is primary or secondary. Matt is recommended if invasive workup is desired (4) Parkinson disease: Code(s): G20 - Parkinson's disease Status: Acute Assessment and Plan: on carbidopa / levodopa (5) Hypothyroidism: Code(s): E03.9 - Hypothyroidism, unspecified Status: Acute Assessment and Plan: on replacement (6) Syncope: Code(s): R55 - Syncope and collapse Status: Acute Assessment and Plan: Uncertain details to this point. Certainly may be related to autonomic dysfunction from longstanding Parkinson's. (7) Pulmonary hypertension: Code(s): I27.20 - Pulmonary hypertension, unspecified Status: Acute Assessment and Plan: severe pulmonary hypertension at this point. Likely secondary to underlying left heart disease/MR (8) Chest pain: Code(s): R07.9 - Chest pain, unspecified Status: Acute Assessment and Plan: Musculoskeletal. Subjective Date/time seen: at 11:08 a.m. Interval history: 70yo female with history of Parkinson here for shortness of breath. She reports some cough. Feels better than when she got admitted. Still gets short of breath with exertion. Leg swelling present getting IV Lasix. Has underlying Parkinson's disease. No chest pain Date of service 08/01/2021 still somewhat short of breath. Swelling is better. No chest pain. Date of service 08/02/2021: she states she feels better today. She has some chest pain last night that was reproducible back pushing on her chest. EKG showed no acute ST segment abnormalities. She states that her shortness breath is better Date of service 08/03/2021: She continues to feel okay. No chest pain or shortness of breath. Feels much Better than admission Date of service 08/04/2021: She states that she is not feeling as well today. Complains of some dizziness as if the room is spinning. Also complaining of chest pain date of service 08/05/2021. she does not feel good today. She has a headache that has been ongoing for some time. She still feel dizziness when she stands up. Review of Systems Review of Systems: All systems reviewed & are unremarkable except as noted in HPI and below Constitutional: Constitutional: Denies fatigue, Denies headache(s) and Reports weakness Eyes: Eyes: Denies blurry vision ENT: Reports Normal hearing present, Denies headache(s) and Denies neck pain Cardiovascular: Cardiovascular: Denies chest pain, Reports leg edema and Reports dyspn
[2021-08-05] MEDS: ENOXAPARIN 40 MG/0.4 ML SYRINGE SUB-Q (12:02)
[2021-08-05] MEDS: CYANOCOBALAMIN INJ 1,000 MCG/ML VIAL 1000 MCG IM (12:20)
--- NOTE | 2021-08-05 12:54 | PM.DS ---
DS: Admitting Diagnosis Discharge Date 08/05/2021 Admitting Diagnosis Shortness of breath DS: Discharge Diagnosis Discharge Diagnosis (1) Acute congestive heart failure: Code(s): I50.9 - Heart failure, unspecified Status: Acute Assessment and Plan: Patient with shortness of breath. BNP was [address]. Chest x-ray shows small left pleural effusion with associated atelectasis and a large cardiac silhouette. She has been started on IV Lasix. I/O's are not accurate. Continue daily weights. Continue IV Lasix. Echocardiogram done which showed severe mitral regurgitation with ejection fraction down to 20-25%. Cardiology consulted started on Entresto and carvedilol now. Blood pressure is borderline with Entresto and current diuresis however tolerating it okay. Cardiology suggestive invasive testing for her severe mitral regurgitation and severe systolic dysfunction however patient declined. Patient opted for no further invasive testing/intervention. Her weight did improved from 89 kilos on arrival to 75 kilos at the time of discharge. With diuresis her diuresis was switched to oral Lasix at the time of discharge. She will need regular follow-up with cardiology as an outpatient basis. Sodium restriction fluid restriction and continued therapy with PT OT. Initial thought was she going home with her son however she refused to go back home with her son. [facility] and [facility] been in the [facility] for past 2 years. She however wanted to be in a different [facility] facility and was accepted at [facility] were she is getting discharged. (2) Left lower lobe pneumonia: Code(s): J18.9 - Pneumonia, unspecified organism Status: Acute Assessment and Plan: Chest x-ray shows small left pleural effusion with associated atelectasis and/or pneumonia. More likely this is related to her CHF and not pneumonia. No fevers. White count normal. Antibiotics were not started and as such will not start them now. Repeat chest x-ray this morning with consultation on the left lower lobe. She does have some cough and has underlying Parkinson's disease. Will initiate IV antibiotics for possible pneumonia will get CT chest to further evaluate for this opacity in the left lower lobe which was done this morning formal read pending however no no obvious consolidation noted in my review but has bilateral pleural effusion right more than left With CT chest there is no obvious pneumonia revealed will stop her antibiotics most of her lung findings and chest x-ray were related to her congestive heart failure. Continue on IV diuresis as ordered. Diuresis changed from IV to p.o. No concern for pneumonia for this admission (3) Acute renal failure (ARF): Code(s): N17.9 - Acute kidney failure, unspecified Status: Acute Assessment and Plan: BUN 27 creatinine 1.3 on admission. No clear baseline. She has been started on IV Lasix. Her renal function has improved probably related to ?unloading? of the heart. Renal ultrasound also is consistent with underlying CKD. Continue to monitor daily while on diuretics. Avoid nephrotoxic agents. Remains stable with the IV diuresis and her medication (4) Anemia: Code(s): D64.9 - Anemia, unspecified Status: Acute Assessment and Plan: Patient with macrocytic anemia. B12 level low end of normal. MMA came back elevated.. Replace B12. Give a dose of IM B12 here. Will continue oral vitamin B12 replacement discharge (5) Parkinson disease: Code(s): G20 - Parkinson's disease Status: Acute Assessment and Plan: Although not listed in the H&P, patient most likely has Parkinson's disease given clinical findings and the fact she is on Sinemet. Sinemet has been resumed. Continued on PT OT. Fairly advanced Parkinson's disease with with hypokinesia and tremor. Speech therapy evaluation as well given the concern for pneumo
[2021-08-05 13:28] LABS: EDCOVIDSCREEN Negative (Negative)
[2021-08-05] MEDS: diphenhydrAMINE HCl CAP 25 MG CAPSULE PO (20:23)
[2021-08-06 00:15] VITALS: BP 100/54; PULSE 85; RESP 20; TEMP 36.6; O2SAT 97
== END 2021-08-06 02:30 | DRG 292 ==
LOC: ANHED 20:27 → ANH2MED 22:28
PROVIDERS: Internal Medicine; Internal Medicine Cardiovascular Disease; Physician Assistant; Admitting Provider Internal Medicine; Emergency Provider Emergency Medicine; PCP Internal Medicine; Visit Provider Internal Medicine
DX: I50.21 Acute systolic (congestive) heart failure (principal); N17.9 Acute kidney failure, unspecified; I42.9 Cardiomyopathy, unspecified; I27.20 Pulmonary hypertension, unspecified; I34.0 Nonrheumatic mitral (valve) insufficiency; Z20.822 Contact with and (suspected) exposure to COVID-19; E03.9 Hypothyroidism, unspecified; G20 Parkinson's disease; D53.9 Nutritional anemia, unspecified; R55 Syncope and collapse; R07.89 Other chest pain; Z79.82 Long term (current) use of aspirin; Z79.899 Other long term (current) drug therapy; Z88.3 Allergy status to other anti-infective agents
CPT/HCPCS: 36415; 71045; 71046; 71250; 76775; 80048; 80053; 80069; 82570; 82607; 82746; 83690; 83735; 83880; 83921; 84300; 84443; 84484; 85025; 85027; 85055; 85610; 85730; 87426; 92526; 92610; 93005; 93306; 96365; 96367; 96372; 96375; 96376; 97110; 97161; 97165; 97535; 99285; A9270; C9803; G0378; J0456; J0696; J1650; J1940; J2270; J3420